=== PATIENT | female | born 1980 | race Caucasian/White ===

== ENCOUNTER 2025-04-17 17:40 | Inpatient (IN) ==
--- NOTE | 2025-04-17 18:04 | Emergency Department Note ---
Impression & Plan Abnormal computed tomography of lumbar spine, Lower back pain, Pain in right thigh, Breast cancer, Metastasis ED Provider Note NAME: REBECCA SERRANO AGE: 44 SEX: F : 1980 ARRIVES VIA: Walk-In INFORMANT: [Patient] ED PROVIDER(S): [Dc Marin MD] CHIEF COMPLAINT: Right back pain HISTORY OF PRESENT ILLNESS: The patient is a 44-year-old female with stage IV breast cancer. She has known lesions in the L3 vertebral body. She also has a known right sided kidney stone. The patient has had 1.5 weeks of right lower back pain moving to the right hip. She notices pain with urination. She also notices pain with movement in any direction, she has tried Tylenol for relief without success. The patient denies fall. No fever, no cough or congestion. No shortness of breath. She is not on blood thinning agents. PMHx/PSHx/Social Hx: See Below PHYSICAL EXAM: GENERAL: Patient is in no acute distress. HEENT: No acute trauma, normocephalic atraumatic, mucous membranes moist, no nasal congestion. NECK: No stridor, no adenopathy, no meningismus, trachea is midline. LUNGS: Clear to auscultation bilaterally, no wheeze, no rhonchi, breath sounds equal. HEART: Without murmurs gallops or rubs, regular rate and rhythm. ABDOMEN: Soft, nontender, no peritonitis. EXTREMITIES: No cyanosis, full range of motion of all the joints without pain or difficulty. NEUROLOGIC: Oriented x 3, no acute motor or sensory deficits, no focal weakness. I cannot elicit reflexes in either lower extremity. SKIN: No jaundice, no diaphoresis. Back: No real area of focal discomfort. The pain does worsen with any movement. DIFFERENTIAL DIAGNOSIS: Musculoskeletal pain, renal colic, UTI, pyelonephritis, hematoma, fracture, among others. EMERGENCY DEPARTMENT PROCEDURES: MEDICAL DECISION MAKING: There is no leukocytosis or concerning anemia. There is a normal platelet count. No bandemia. No renal failure or significant electrolyte abnormality. No concerning liver enzyme elevation. No evidence for pancreatitis. testing was negative. On exam, the patient had pain in the area of the right lumbar back. She was not toxic or febrile. Patient received IV saline for hydration. She was given IV Zofran, IV Toradol and IV Dilaudid. CT imaging of the lumbar spine and abdomen/pelvis was performed. Abdominal and pelvis CT did not show any urinary obstruction or ureteral stone. No acute surgical pathology. CT of the lumbar spine shows worsening of the L3 lesion with possible tumor extension into the right neural foramen. An MRI was suggested The patient still was having significant discomfort. She was ordered for IV Decadron as well as additional IV Dilaudid. I spoke with hematology oncology. They recommended hospitalization, MRI imaging, possibly radiation therapy. I did speak with the patient, I spoke with case management, the on-call hospitalist was consulted. Further workup/care is warranted inpatient. Prior/Outside records/notes reviewed: Hematology/oncology note from 03/26/2025 describing her current condition and plan moving forward. Imaging/x-ray results per my interpretation: Chronic Medical/Social conditions affecting care: Stage IV breast cancer Care/Management discussed with: Hematology oncology-Dr. Corona. Case management and the on-call hospitalist. Level of care consideration(s): After review of the information above and other included data: --I believe the patient requires escalation of care to admission DISPOSITION: Admission Past Med/Surg History Problem List Metastasis (Acute) Breast cancer (Acute) Pain in right thigh (Acute) Lower back pain (Acute) Abnormal computed tomography of lumbar spine (Acute) Malignant neoplasm of upper-outer quadrant of right breast in female, estrogen receptor positive (Chronic 07/21/19) Medical History Endometriosis Graves disease (~2004) Anxiety Migraine Hyperlipemia Acid reflux Hypothyroidism Depression Surgical History (Updated 08/09/22 @ 15:28 by Jyoti Stark RN) Status post cystoscopy with ureteral stent placement (~2014) Stent was removed day after placement History of lithotripsy (~2014) History of oral surgery (~2006) Extractions of all upper and lower teeth History of D&C x 3 History of total abdominal hysterectomy (~2018) has 1 ovary remaining History of lumpectomy of right breast 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 Father No problems noted. Brother No problems noted. Brother No problems noted. Sister , Half - Passed age 41 of MVA No problems noted. Daughter No problems noted. Son No problems noted. 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 Qualified Required: No Beliefs That Will Affect Care: None marital status: Current Living Situation: Family current occupational status: employed current occupation: [employer] Feels Safe at Home: Yes Childhood Exposure to Second-Hand Smoke: Yes Diet: regular caffeine: Yes during the past year weight has: remained stable Dental Care, Regularly: No Allergies Allergies Allergy/AdvReac Type Severity Reaction Status Date / Time ethinyl estradiol Allergy Severe Nausea/SOB Verified 09/15/22 09:06 [From Sprintec (28)] meperidine [From Demerol] Allergy Severe Nausea/Vomi Verified 09/15/22 09:06 ting norgestimate Allergy Severe Nausea/SOB Verified 09/15/22 09:06 [From Sprintec (28)] Home Meds Home Medications Medication Instructions Recorded Confirmed famotidine 20 mg tablet 20 mg PO BID 10/09/19 04/14/25 propranolol 10 mg tablet 10 mg PO BID 10/09/19 04/14/25 atorvastatin 20 mg tablet 20 mg PO DAILY 07/03/21 04/14/25 escitalopram oxalate 20 mg tablet 20 mg PO DAILY 07/03/21 04/14/25 levothyroxine 125 mcg tablet 125 mcg PO DAILY 07/03/21 04/14/25 letrozole 2.5 mg tablet 2.5 mg PO DAILY 08/09/22 04/14/25 pramipexole 0.125 mg tablet 0.125 mg PO DAILY 04/14/25 04/14/25 Results & Data (ED) Vital Signs Vital Signs - 24 hr 04/17/25 17:44 04/17/25 20:30 Temperature 36.3 C L Temperature Source Skin Pulse Rate 66 Pulse Rate [Finger] 60 Pulse Rhythm [Finger] Regular Pulse Strength [Finger] Normal Respiratory Rate 20 20 Respiratory Effort / Characteristics Non-Labored Spontaneous Non-Labored Spontaneous Respiratory Depth Normal Normal Respiratory Pattern Regular Regular Blood Pressure 125/75 Blood Pressure [Left Arm] 130/75 Blood Pressure Mean 91 Blood Pressure Mean [Left Arm] 93 Blood Pressure Position [Left Arm] Lying Pulse Oximetry 95 97 Oxygen Delivery Method Room Air Room Air Sepsis Recent Fever Within 48 Hours No Sepsis New/Unexplained Change in Mental Status N/A Sepsis Action Taken by Nursing No Action Required Home Medications Current Medication List: was personally reviewed by me Laboratory Data Attestation: I reviewed the patient's lab results. 04/17/25 18:19 04/17/25 18:19 Lab Results 04/17/25 Range/Units 18:19 WBC 10.06 (4.8-10.8) K/ul RBC 4.36 (4.20-5.40) M/uL Hgb 14.8 (12.0-16.0) g/dL Hct 41.4 (37.0-47.0) % MCV 95.0 (80.0-100.0) fL MCH 33.9 (25.0-34.0) pg MCHC 35.7 (32.0-36.0) g/dL RDW Std Deviation 44.9 (36.4-46.3) fL RDW Coeff of Liz 12.8 (11.5-14.5) % Plt Count 253 (130-400) K/uL MPV 10.0 (9.4-12.4) fL Immature Gran % (Auto) 0.2 % Neut % (Auto) 55.1 % Lymph % (Auto) 32.3 % Nelson % (Auto) 8.0 % Eos % (Auto) 3.6 % Baso % (Auto) 0.8 % Neut # (Auto) 5.55 (1.40-6.50) K/uL Lymph # (Auto) 3.25 (1.20-3.40) K/uL Nelson # (Auto) 0.80 H (0.11-0.59) K/uL Eos # (Auto) 0.36 (0.00-0.50) K/uL Baso # (Auto) 0.08 (0.00-0.20) K/uL Immature Gran # (Auto) 0.02 (0.01-0.20) K/uL Sodium 137 (136-145) mmol/L Potassium 4.3 (3.5-5.1) mmol/L Chloride 104 (98-107) mmol/L Carbon Dioxide 24 (21-32) mmol/L Anion Gap 9 (3-11) BUN 16 (6-23) mg/dl Creatinine 0.69 (0.6-1.2) mg/dl Est Cr Clr Drug Dosing 127.0 ml/min eGFR 108.33 BUN/Creatinine Ratio 23.2 H (10-20) Glucose 83 (70-99(Fasting)) mg/dl Calcium 9.6 (8.6-10.3) mg/dl Total Bilirubin 0.5 (0.2-1.0) mg/dl AST 21 (13-39) U/L ALT 29 (7-52) U/L Alkaline Phosphatase 71 (34-104) U/L Total Protein 7.6 (6.0-8.3) gm/dl Albumin 4.1 (3.4-5.0) gm/dl Globulin 3.5 (2.5-4.0) gm/dl Albumin/Globulin Ratio 1.2 (0.9-2) Lipase 38 (11-82) U/L HCG, Qual Negative (Negative) Administered Medications Discontinued Medications Dexamethasone Sodium Phosphate (DexamethasonePf 10 Mg/Ml Vial) 10 mg IV NOW ONE Stop: 04/17/25 20:15 Last Admin: 04/17/25 20:35 Dose: 10 mg Documented By: PRUDENCIO Hydromorphone HCl (Hydromorphone Inj 0.5 Mg/0.5 Ml Syr) 0.5 mg IV NOW STA Stop: 04/17/25 17:59 Last Admin: 04/17/25 18:28 Dose: 0.5 mg Documented By: LASHAUN Hydromorphone HCl (Hydromorphone Inj 1 Mg/Ml Syringe) 1 mg IV NOW STA Stop: 04/17/25 20:15 Last Admin: 04/17/25 20:34 Dose: 1 mg Documented By: PRUDENCIO Sodium Chloride (Nss) 500 mls @ 999 mls/hr IV .Q31M STA Stop: 04/17/25 18:28 Last Infusion: 04/17/25 19:04 Dose: Infused Documented By: Admin: 04/17/25 18:28 Dose: 999 mls/hr Documented By: LASHAUN Ioversol (Optiray 320 100ml) 93 ml IV ONCE ONE Stop: 04/17/25 19:09 Last Admin: 04/17/25 19:08 Dose: 93 ml Documented By: JEFRY Ketorolac Tromethamine (Ketorolac Tromethamine 15 Mg/Ml Vial) 10 mg IV NOW ONE Stop: 04/17/25 18:00 Last Admin: 04/17/25 18:28 Dose: 10 mg Documented By: LASHAUN Ondansetron HCl (Ondansetron Inj 2 Mg/Ml 2 Ml Vial) 4 mg IV NOW STA Stop: 04/17/25 17:59 Last Admin: 04/17/25 18:28 Dose: 4 mg Documented By: LASHAUN Imaging Data Radiologist's Impression: Abdomen/Pelvis CT 04/17/25 17:58 Clinical History: Right flank pain Technique: Axial computed tomography images were obtained of the abdomen and pelvis after the administration of intravenous contrast. Comparison is made to the prior CT dated 07/02/2021. Findings: The liver is overall of normal size, attenuation, and contour with no sign of cirrhosis or significant fatty infiltration. No liver mass lesion is seen. The portal vein is patent. The gallbladder appears unremarkable. No bile duct dilatation is noted. The spleen is of normal size. No focal splenic lesion is evident. The pancreas appears normal with no sign of acute or chronic pancreatitis and no mass lesion noted. The pancreatic duct is of normal caliber. The adrenal glands appear unremarkable. There is an 11 mm right renal calculus and there is a 2 mm left renal calculus. There is no hydronephrosis or perinephric stranding. No renal mass lesion is identified. The aorta is of normal caliber. No abdominal adenopathy is seen. The stomach appears normal. There is no sign of small bowel obstruction. The colon appears unremarkable. The appendix appears normal also. No free intraperitoneal fluid or air is identified. No distal ureteral or bladder calculi are seen. No bladder mass lesion is evident. The iliac arteries are of normal caliber. No pelvic adenopathy is noted. The uterus has been removed There is subsegmental atelectasis in the left lower lobe. No fracture is identified. No focal osseous lesion is seen Impression: Bilateral nonobstructing renal calculi Electronically signed by Celestine Ellington 04-17-2025 7:[address] 04/17/25 17:58 CT LUMBAR SPINE WITH CONTRAST: HISTORY: PAIN TECHNIQUE: Contrast enhanced CT examination of the lumbar spine is performed. Coronal and sagittal reformats were created. COMPARISON: PET CT April 01, 2025. FINDINGS: LUMBAR SPINE: There is no significant vertebral body height loss. There is no significant spondylolisthesis. Usual lumbar lordosis is preserved. There is an ill-defined lucency in the left sacral ala measuring approximately 3.8 cm in size. There is also a lucent lesion in the right lower aspect of L3 vertebral body measuring 2.0 cm in size. There appear to be cortical breakthroughs along the inferior endplate and posterior margin of the vertebral body. This could represent tumor extension into the spinal canal and the right neural foramen as well as into L3-4 disc space. This process may be contributing to moderate neural foraminal narrowing on the right side. Multilevel degenerative changes characterized by disc space loss, broad based disc bulge/herniations with endplate changes of the vertebral bodies with small marginal osteophytes as well as bilateral facet hypertrophy and thickening of the ligamentum flavum resulting in crowding of the subarticular recesses and narrowing of neural foramina worst at L4-S1. 9 mm nonobstructing calculus in the lower pole of the right kidney IMPRESSION: Redemonstrated ill-defined lucencies of the left sacral ala and L3 vertebral body as above, corresponding to metabolically active lesions identified in the recent PET/CT examination. There appear to be cortical breakthroughs along the inferior endplate and posterior margin of L3 vertebral body. This could represent tumor extension into the spinal canal and the right neural foramen as well as into L3-4 disc space may be contributing to moderate neural foraminal on the right side. These soft tissue processes are poorly evaluated in CT. If indicated, recommend further evaluation with lumbar spine MRI when clinically appropriate Electronically signed by Mark Castellano 04-17-2025 7:52 PM Discharge Plan Visit Data Chief Complaint: Back Injury/Pain Stated Complaint: SEVERE BACK PAIN, STAGE 4 CANCER, TUMOR ED Provider: Dc Marin Discharge Problem: Abnormal computed tomography of lumbar spine, Lower back pain, Pain in right thigh, Breast cancer, Metastasis Patient Disposition: Admitted As Inpatient Condition: Fair Forms Stand Alone Forms: BAM Labs Prescriptions Prescriptions: No Action famotidine 20 mg tablet 20 mg PO BID propranolol 10 mg tablet 10 mg PO BID letrozole 2.5 mg tablet 2.5 mg PO DAILY Rx Instructions: begin between days 2 and 5 of mentrual cycle pramipexole 0.125 mg tablet 0.125 mg PO DAILY atorvastatin 20 mg tablet 20 mg PO DAILY levothyroxine 125 mcg tablet 125 mcg PO DAILY escitalopram oxalate 20 mg tablet 20 mg PO DAILY Referrals Referrals: Jeremiah Day MD [Primary Care Provider] - Discharge Problem: Lower back pain Qualifiers: Chronicity: acute Back pain laterality: right Sciatica presence: with sciatica Sciatica laterality: sciatica of right side Qualified Code(s): M54.41 - Lumbago with sciatica, right side Breast cancer Qualifiers: Breast location: unspecified site of breast Estrogen receptor status: u nspecified Patient sex: female Laterality: unspecified laterality Qualified Code(s): C50.919 - Malignant neoplasm of unspecified site of unspecified female breast Metastasis Qualifiers: Area of secondary neoplastic involvement: bone Qualified Code(s): C79.51 - Secondary malignant neoplasm of bone
[2025-04-17] MEDS: KETOROLAC TROMETHAMINE 15 MG/ML VIAL IV ONE (18:28)
[2025-04-17] MEDS: ONDANSETRON INJ 2 MG/ML 2 ML VIAL IV STA (18:28)
[2025-04-17] MEDS: HYDROmorphone INJ 0.5 MG/0.5 ML SYR IV STA (18:28)
[2025-04-17] MEDS: SODIUM CHLORIDE 0.9% 500 ML IV STA (18:28)
[2025-04-17 18:32] LABS: Hematocrit (blood only) 41.4 % (37.0-47.0); Hemoglobin 14.8 g/dL (12.0-16.0); Immature Granulocytes # (auto) 0.02 K/uL (0.01-0.20); Immature Granulocytes % (auto) 0.2 %; Mean Corpuscular Hemoglobin 33.9 pg (25.0-34.0); Mean Corpuscular Volume 95.0 fL (80.0-100.0); Platelet Count 253 K/uL (130-400); RDW Standard Deviation 44.9 fL (36.4-46.3); Red Blood Count 4.36 M/uL (4.20-5.40); White Blood Count 10.06 K/ul (4.8-10.8)
[2025-04-17 18:50] LABS: Pregnancy Test, Serum Negative (Negative)
[2025-04-17 18:51] LABS: Alanine Aminotransferase 29.0 U/L (7-52); Albumin Globulin Ratio 1.2 (0.9-2); Albumin Level 4.1 gm/dl (3.4-5.0); Alkaline Phosphatase 71.0 U/L (34-104); Anion Gap 9.0 (3-11); Bilirubin,Total 0.5 mg/dl (0.2-1.0); Blood Urea Nitrogen 16.0 mg/dl (6-23); Calcium 9.6 mg/dl (8.6-10.3); Carbon Dioxide 24.0 mmol/L (21-32); Chloride 104.0 mmol/L (98-107); Creatinine Clr Calc Pharmacy 127.0 ml/min; Globulin 3.5 gm/dl (2.5-4.0); Glucose 83.0 mg/dl (70-99(Fasting)); Lipase 38.0 U/L (11-82); Potassium 4.3 mmol/L (3.5-5.1); Sodium 137.0 mmol/L (136-145); Total Protein 7.6 gm/dl (6.0-8.3)
[2025-04-17] MEDS: OPTIRAY 320 100ml IV ONE (19:08)
--- NOTE | 2025-04-17 19:28 | CT Scan Report ---
Clinical History: Right flank pain Technique: Axial computed tomography images were obtained of the abdomen and pelvis after the administration of intravenous contrast. Comparison is made to the prior CT dated 07/02/2021. Findings: The liver is overall of normal size, attenuation, and contour with no sign of cirrhosis or significant fatty infiltration. No liver mass lesion is seen. The portal vein is patent. The gallbladder appears unremarkable. No bile duct dilatation is noted. The spleen is of normal size. No focal splenic lesion is evident. The pancreas appears normal with no sign of acute or chronic pancreatitis and no mass lesion noted. The pancreatic duct is of normal caliber. The adrenal glands appear unremarkable. There is an 11 mm right renal calculus and there is a 2 mm left renal calculus. There is no hydronephrosis or perinephric stranding. No renal mass lesion is identified. The aorta is of normal caliber. No abdominal adenopathy is seen. The stomach appears normal. There is no sign of small bowel obstruction. The colon appears unremarkable. The appendix appears normal also. No free intraperitoneal fluid or air is identified. No distal ureteral or bladder calculi are seen. No bladder mass lesion is evident. The iliac arteries are of normal caliber. No pelvic adenopathy is noted. The uterus has been removed There is subsegmental atelectasis in the left lower lobe. No fracture is identified. No focal osseous lesion is seen Impression: Bilateral nonobstructing renal calculi Electronically signed by Celestine Ellington 04-17-2025 7:28 PM
--- NOTE | 2025-04-17 19:53 | CT Scan Report ---
CT LUMBAR SPINE WITH CONTRAST: HISTORY: PAIN TECHNIQUE: Contrast enhanced CT examination of the lumbar spine is performed. Coronal and sagittal reformats were created. COMPARISON: PET CT April 01, 2025. FINDINGS: LUMBAR SPINE: There is no significant vertebral body height loss. There is no significant spondylolisthesis. Usual lumbar lordosis is preserved. There is an ill-defined lucency in the left sacral ala measuring approximately 3.8 cm in size. There is also a lucent lesion in the right lower aspect of L3 vertebral body measuring 2.0 cm in size. There appear to be cortical breakthroughs along the inferior endplate and posterior margin of the vertebral body. This could represent tumor extension into the spinal canal and the right neural foramen as well as into L3-4 disc space. This process may be contributing to moderate neural foraminal narrowing on the right side. Multilevel degenerative changes characterized by disc space loss, broad based disc bulge/herniations with endplate changes of the vertebral bodies with small marginal osteophytes as well as bilateral facet hypertrophy and thickening of the ligamentum flavum resulting in crowding of the subarticular recesses and narrowing of neural foramina worst at L4-S1. 9 mm nonobstructing calculus in the lower pole of the right kidney IMPRESSION: Redemonstrated ill-defined lucencies of the left sacral ala and L3 vertebral body as above, corresponding to metabolically active lesions identified in the recent PET/CT examination. There appear to be cortical breakthroughs along the inferior endplate and posterior margin of L3 vertebral body. This could represent tumor extension into the spinal canal and the right neural foramen as well as into L3-4 disc space may be contributing to moderate neural foraminal on the right side. These soft tissue processes are poorly evaluated in CT. If indicated, recommend further evaluation with lumbar spine MRI when clinically appropriate Electronically signed by Mark Castellano 04-17-2025 7:52 PM
[2025-04-17] MEDS ORDERED: HYDROmorphone INJ 0.5 MG/0.5 ML SYR IV PRN (20:14)
[2025-04-17] MEDS: HYDROmorphone INJ 1 MG/ML SYRINGE IV STA (20:34)
[2025-04-17] MEDS: dexAMETHasone**PF** 10 MG/ML VIAL IV ONE (20:35)
[2025-04-17 20:49] LABS: Appearance Urine Clear (Clear); Bacteria Urine Automated 1+ (None Seen); Cast Urine Automated 0-2 /lpf (0-2); Epithelial Cell Urine Auto 0-2 /hpf (0-2); Glucose Urine UA Negative (Negative); WBC Urine Automated 0-5 /hpf (0-5)
--- NOTE | 2025-04-17 20:49 | History & Physical Report ---
Date of Service April 17, 2025 Assessment & Plan (1) Intractable back pain: (2) Breast cancer, stage 4: (3) Tobacco use: Plan Patient is a 44-year-old female with a past medical history including Graves' disease, anxiety/depression, HLD, breast cancer. She presented due to 1.5 weeks of severe progressive low back pain that radiates to her right hip and leg. Patient was found to have new L3 metastasis on PET scan 04/01. Workup in the ED revealed bilateral nonobstructing renal calculi as well as possible L3 tumor extension into the right neural foramen. She is being admitted for intractable pain and further workup regarding metastasis. #intractable painlikely 2/2 cancer related pain with recent L3 metastasis. Lumbar spine CT showed possible tumor extension into right neural foramen as well as into the L3-L4 disc space. Laboratories unremarkable. - nephrolithiasis/UTI unlikely given AP CT shows BL nonobstructing renal calculi, UA without infection Lumbar spine MRI ordered Heme/oncology consulted, may consider radiation therapy based off MRI results Pain control with Tylenol, Toradol, Dilaudid 0.5/1 mg (for pain uncontrolled by #1 and #2), Lidoderm patch, kpad prn - Decadron 10 mg IV in ED, continue with 6 mg daily Zofran as needed for nausea Trend CBC and BMP #stage IV breast cancer with metastasis to lumbar spinefollows with Dr. Donaldson. S/p lumpectomy 2018 and radiation in 2019. New found metastasis 04/01 on PET scan. Stat brain MRI 04/19 and further lymph node biopsy with Dr. Sanford 02/18 Lumbar spine MRI as above Heme/oncology consulted Continue letrozole #Tobacco use disorder1 pack/day cigarettes. Nicotine patch ordered Encourage smoking cessation #Hypothyroidismcontinue levothyroxine #HTNcontinue propranolol #RLScontinue Pramipexole #HLDcontinue statin #Anxiety/depressioncontinue escitalopram #GERDcontinue famotidine VTE ppx: Lovenox q 24h Dispo: med surg Admission and Anticipated Discharge Date Admission Date: 04/17/25 History of Present Illness Chief Complaint: back injury/pain Primary Care Provider: Jeremiah Day MD Patient is a 44-year-old female with a past medical history including Graves' disease, anxiety/depression, HLD, breast cancer. She presented due to 1.5 weeks of severe progressive low back pain that radiates to her right hip and leg. Patient was found to have new L3 metastasis on PET scan 04/01. Workup in the ED revealed bilateral nonobstructing renal calculi as well as possible L3 tumor extension into the right neural foramen. She is being admitted for intractable pain and further workup regarding metastasis. Patient seen at bedside with her family present. She stated she had radiation, lumpectomy, and lymph node biopsy in 2019 and her cancer has been stable since. She underwent CT imaging 03/26 which showed possible metastasis and she had a PET scan 04/01 which showed metastasis to the L3 region. Patient then had a lymph node biopsy 04/08 which she reports did not have a enough specimen to determine the hormonal make up of the cancer. She is to have a brain MRI Sunday and call lymph node biopsy with Dr. Sanford on Sunday. Since then she has developed progressive low back pain on the right side which radiates down her right hip and leg. This has been occurring for approximately 1.5 weeks and it has been unrelieved with Tylenol and ibuprofen at home. She does endorse some pain with urination/difficulty starting a stream however denies any urinary or bowel incontinence. She denies any trauma to the area. She does endorse some intermittent chest pain however baseline for her given her mass reportedly presses on her chest. She denies any shortness of breath, nausea, vomiting. She does smoke 1 pack per send day of cigarettes, would like nicotine patch, ordered. Denies daily alcohol use. She is due for her evening medications, ordered. Does not use any oxygen at baseline. Wishes to be DNR/DNI. Discussion with ER provider who spoke with on-call oncologist, Dr. Corona who recommended admission to the hospital for pain management, lumbar spine MRI, and will consider radiation based off MRI results. Allergies Allergy/AdvReac Type Severity Reaction Status Date / Time ethinyl estradiol Allergy Severe Nausea/SOB Verified 09/15/22 09:06 [From Sprintec (28)] meperidine [From Demerol] Allergy Severe Nausea/Vomi Verified 09/15/22 09:06 ting norgestimate Allergy Severe Nausea/SOB Verified 09/15/22 09:06 [From Sprintec (28)] Home Medications Medication Instructions Recorded Confirmed Type famotidine 20 mg tablet 20 mg PO BID 10/09/19 04/17/25 History propranolol 10 mg tablet 10 mg PO BID 10/09/19 04/17/25 History atorvastatin 20 mg tablet 20 mg PO DAILY 07/03/21 04/17/25 History escitalopram oxalate 20 mg tablet 20 mg PO DAILY 07/03/21 04/14/25 History levothyroxine 125 mcg tablet 125 mcg PO DAILY 07/03/21 04/17/25 History letrozole 2.5 mg tablet 2.5 mg PO DAILY 08/09/22 04/17/25 History pramipexole 0.125 mg tablet 0.125 mg PO DAILY 04/14/25 04/17/25 History Past Med/Surg History Problem List (Updated 04/18/25 @ 02:14 by Franko Avila) Tobacco use Breast cancer, stage 4 Intractable back pain Metastasis (Acute) Breast cancer (Acute) Pain in right thigh (Acute) Lower back pain (Acute) Abnormal computed tomography of lumbar spine (Acute) Malignant neoplasm of upper-outer quadrant of right breast in female, estrogen receptor positive (Chronic 07/21/19) Medical History Endometriosis Graves disease (~2004) Anxiety Migraine Hyperlipemia Acid reflux Hypothyroidism Depression Surgical History (Updated 08/09/22 @ 15:28 by Jyoti Stark RN) Status post cystoscopy with ureteral stent placement (~2014) Stent was removed day after placement History of lithotripsy (~2014) History of oral surgery (~2006) Extractions of all upper and lower teeth History of D&C x 3 History of total abdominal hysterectomy (~2018) has 1 ovary remaining History of lumpectomy of right breast 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 Father No problems noted. Brother No problems noted. Brother No problems noted. Sister , Half - Passed age 41 of MVA No problems noted. Daughter No problems noted. Son No problems noted. 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 Non-toxic appearing. HEENT- EOMI, mucous membranes moist. Hearing grossly intact. Heart-normal S1 and S2. No murmurs, rubs or gallops. Lungs-clear bilaterally, no respiratory distress, no accessory muscle use. Abdomen-normal bowel sounds and soft. No ascites noted. Non-tender. Extremities- no clubbing, cyanosis, or edema. Rheumatologic-normal range of motion. Psychiatric-normal affect. Musculoskeletal: no cyanosis or clubbing, extremities motor strength 5/5 Neurologic: Motor/Sensory: no sensory deficit Results & Data Results & Data Vital Signs (Past 12 Hours) Vital Signs Temp Pulse Pulse Resp BP BP Pulse Ox 04/17/25 20:30 60 20 130/75 97 04/17/25 17:44 36.3 C L 66 20 125/75 95 O2 Del Method 04/17/25 20:30 Room Air 04/17/25 17:44 Room Air Laboratory Results Reviewed CBC, CMP, hCG, lipase, UA Diagnostic Findings Reviewed abdomen pelvis CT, lumbar spine CT Medications Administered ED500 mL NSS bolus, 1.5 mg Dilaudid IV, Zofran 4 Mg IV, Toradol 10 Mg IV, Decadron 10 mg IV ECG Additional Comments: ordered Code Status & VTE Plan Code Status DNR/DNI VTE Prophylaxis Plan VTE Prophylaxis will be ordered: Yes Supervising Physician Co-Signing Physician Notes Attending addendum: I have physically seen this patient, have supervised the medical residents activities, and agree with the H&P unless as otherwise noted. Assessment and Plan: The patient is a 44-year-old female with a past medical history including Graves' disease, anxiety/depression, hyperlipidemia, breast cancer. She presented to the emergency department with 1-1/2 weeks of severe progressive low back pain radiating to her right hip and leg. PET/CT on 04/01 showed new L3 metastases. CT scan lumbar spine this evening showed possible extension into the L3-4 disc space. Intractable low back pain- Patient was found on PET/CT 04/[address] this evening suggest possible extension into the L3-4 disc space MRI lumbar spine ordered CT also notes bilateral nonobstructing renal calculi,, not likely the cause of symptoms Acetaminophen as needed mild pain or fever Toradol 15 mg IV every 6 hours as needed for moderate pain Toradol IV as noted for severe pain Lidoderm patch K-pad use as needed Decadron 6 mg IV given in the ED, will continue on 6 mg IV daily Zofran 4 mg IV every 6 hours as needed Follow serial CBC with differential and basic metabolic panel Stage IV breast cancer with new metastases to lumbar spine- Consulting Dr. Ruby Tobacco use disorder- 1 pack/day cigarettes Nicotine patch Smoking cessation counseling Remaining orders and notations as noted PG Care Time/CCT Total # of Minutes Spent Total Time Spent with Patient: Total time spent is greater than 50% in coordination of care (as documented) at patient's floor/unit and/or counseling patient: Coding Level of Care Code 70204 INT INP/OBS CARE 3/75MIN Diagnoses Intractable back pain M54.9 Breast cancer, stage 4 C50.919 Tobacco use Z72.0
--- NOTE | 2025-04-17 23:15 | Magnetic Resonance Report ---
Exam(s): MRI L SPINE Without Contrast EXAM: MR Lumbar Spine Without Intravenous Contrast CLINICAL HISTORY: Reason for exam: possible L3 tumor extension. OTHER: Other Notes: pt states came to ED with lower back pain hx of breast cancer, diagnosed in July [address] possible metastatic lesions seen on CT lumbar today in L3 region and left sacral ala possible tumor extension into L3 metabolically active lesions seen on prior PET scan corresponding with these lesions follow up, radiologist who read CT recommended MRI lumbar TECHNIQUE: Magnetic resonance images of the lumbar spine without intravenous contrast in multiple planes. COMPARISON: No relevant prior studies available. FINDINGS: Vertebrae: There are 5 lumbar type vertebral bodies with a mild generalized curved to the right and normal lumbar lordosis. There is normal vertebral body height and alignment. There are bone marrow lesions in the T12 L3, L4, S1 and S2 segments. No acute fracture. Spinal cord: Unremarkable. Normal signal. Soft tissues: Advanced atrophy of the iliopsoas, paraspinous intraspinous musculature. The aorta and IVC flow voids are intact. Tiny left renal cyst. IMPRESSION: There are bone marrow lesions in the T12, L3, L4, S1 and S2 vertebral bodies concerning for metastatic disease. No evidence of pathologic fracture or epidural tumor in this noncontrast study. Electronically signed by: Karie Shea MD 04/17/25 23:14 PM
[2025-04-18] MEDS ORDERED: ONDANSETRON INJ 2 MG/ML 2 ML VIAL IV PRN (02:24)
[2025-04-18] MEDS ORDERED: ACETAMINOPHEN 325 MG TAB PO PRN (02:24)
[2025-04-18] MEDS ORDERED: NALOXONE HCL 0.4 MG/1 ML VIAL/CARP IV PRN (02:24)
[2025-04-18] MEDS ORDERED: MELATONIN 3 MG TAB PO PRN (02:24)
[2025-04-18] MEDS: HYDROmorphone INJ 0.5 MG/0.5 ML SYR IV PRN (02:39)
[2025-04-18] MEDS: REMOVE LIDODERM PATCH SCH (03:43)
[2025-04-18] MEDS: ENOXAPARIN INJ 40 MG/0.4 ML SYR SQ SCH (03:49)
[2025-04-18] MEDS: PRAMIPEXOLE DIHYDROCHLO 0.25 MG TAB PO SCH (03:50)
[2025-04-18] MEDS: FAMOTIDINE 20 MG TAB PO SCH (03:50)
[2025-04-18] MEDS: LEVOTHYROXINE SODIUM 125 MCG TABLET PO SCH (03:50)
[2025-04-18] MEDS: PROPRANOLOL HCL 10 MG TAB PO SCH (03:50)
[2025-04-18 06:48] LABS: Hematocrit (blood only) 40.8 % (37.0-47.0); Hemoglobin 14.3 g/dL (12.0-16.0); Immature Granulocytes # (auto) 0.04 K/uL (0.01-0.20); Immature Granulocytes % (auto) 0.4 %; Mean Corpuscular Hemoglobin 33.3 pg (25.0-34.0); Mean Corpuscular Volume 94.9 fL (80.0-100.0); Platelet Count 254 K/uL (130-400); RDW Standard Deviation 43.9 fL (36.4-46.3); Red Blood Count 4.30 M/uL (4.20-5.40); White Blood Count 9.33 K/ul (4.8-10.8)
[2025-04-18 07:36] LABS: Alanine Aminotransferase 26.0 U/L (7-52); Albumin Globulin Ratio 1.4 (0.9-2); Albumin Level 4.4 gm/dl (3.4-5.0); Alkaline Phosphatase 71.0 U/L (34-104); Anion Gap 10.0 (3-11); Bilirubin,Total 0.4 mg/dl (0.2-1.0); Blood Urea Nitrogen 16.0 mg/dl (6-23); Calcium 9.4 mg/dl (8.6-10.3); Carbon Dioxide 23.0 mmol/L (21-32); Chloride 103.0 mmol/L (98-107); Creatinine Clr Calc Pharmacy 145.5 ml/min; Globulin 3.2 gm/dl (2.5-4.0); Glucose 163.0 mg/dl (70-99(Fasting)); Magnesium 2.0 mg/dl (1.7-2.4); Potassium 4.7 mmol/L (3.5-5.1); Sodium 136.0 mmol/L (136-145); Total Protein 7.6 gm/dl (6.0-8.3)
[2025-04-18] MEDS: KETOROLAC TROMETHAMINE 15 MG/ML VIAL IV PRN (07:51)
[2025-04-18] MEDS: LIDOCAINE 5% 1 PATCH TD SCH (07:51)
[2025-04-18] MEDS: dexAMETHasone 6 MG in SYRINGE 0 ML IV SCH (07:52)
[2025-04-18] MEDS: ATORVASTATIN 20 MG TAB PO SCH (07:52)
[2025-04-18] MEDS: ESCITALOPRAM OXALATE 20 MG TAB PO SCH (07:52)
[2025-04-18] MEDS: NICOTINE 21 MG/24 HR TDSY TD SCH (07:53)
[2025-04-18] MEDS: REMOVE NICODERM PATCH SCH (07:53)
[2025-04-18] MEDS: HYDROmorphone INJ 1 MG/ML SYRINGE IV PRN (08:30)
[2025-04-18] MEDS: GADOBUTROL 65ML VIAL IV ONE (09:11)
--- NOTE | 2025-04-18 09:57 | Magnetic Resonance Report ---
Clinical History: Breast cancer. Rule out metastatic disease Technique: Multiple T1 and T2-weighted magnetic resonance images were obtained of the brain both before and after the administration of 11 cc of Gadavist intravenous gadolinium contrast Findings: There is no sign of acute or old infarction with normal-appearing diffusion weighted images. No definite focus of demyelination is seen. No mass lesion or other area of abnormal enhancement is identified. There is no intracranial hemorrhage or other fluid collection. No midline shift or other form of herniation is seen. There is no hydrocephalus. There is cavum septum pellucidum, a normal variant. The pituitary gland appears normal. Normal flow-voids are seen within the arteries of the [id number]. The orbits and paranasal sinuses appear normal. The mastoid air cells appear clear Impression: Unremarkable MRI of the brain Electronically signed by Celestine Ellington 04-18-2025 09:57 AM
[2025-04-18] MEDS: LETROZOLE 2.5 MG TAB PO SCH (10:25)
--- NOTE | 2025-04-18 11:09 | Hospitalist Progress Note ---
"Date of Service April 18, 2025 Assessment & Plan (1) Intractable back pain: (2) Breast cancer, stage 4: (3) Tobacco use: Plan Patient is a 44-year-old female with a past medical history including Graves' disease, anxiety/depression, HLD, breast cancer. She presented due to 1.5 weeks of severe progressive low back pain that radiates to her right hip and leg. Patient was found to have new L3 metastasis on PET scan 04/01. Workup in the ED revealed bilateral nonobstructing renal calculi as well as possible L3 tumor extension into the right neural foramen. She is being admitted for intractable pain and further workup regarding metastasis on 04/17/2025. #Stage IV breast cancer w/ mets to lumbar spine | intractable cancer related pain Follows w/ Dr. Ruby outpatient. s/p lumpectomy in 2018 & radiation in 2019. Now on Letrozole which has been continued. Laboratories unremarkable. Lumbar MRI : Bone marrow lesions at T12, L3, L4, S1, S2 concerning for metastatic disease. Brain MRI negative for acute pathology. Oncology consulted, appreciate recommendations Pt is scheduled for a bx on 04/[address] Sanford, will touch base with gen surg to see if she can still have this done on Sunday. Continue 6mg IV Dexamethasone daily Pain control: Tylenol, Toradol, Dilaudid prn. Zofran prn for N/V. #Tobacco use disorder 1 pack/day cigarettes. Nicotine patch ordered Encourage smoking cessation #Hypothyroidismcontinue levothyroxine #HTNcontinue propranolol #RLScontinue Pramipexole #HLDcontinue statin #Anxiety/depressioncontinue escitalopram #GERDcontinue famotidine VTE ppx: Lovenox q 24h Code: DNR/DNI Admission and Anticipated Discharge Date Admission Date: April 17, 2025 Supervising Physician Co-Signing Physician Notes The patient was not seen by me. The chart was reviewed. Case discussed with SUDEEP Mondragon. Agree with assessment and plan Subjective Lucy was seen & examined this morning. She reports her pain is decently controlled at rest but when she moves her pain is significant. Reports pain w/ movement despite the dose of Dilaudid. Physical Exam Physical Exam: General: NAD, VS: BP 105/66; P62; R16; T36.7C Resp: normal respiratory effort Extremities: no edema Neuro: A&O x3 Skin: intact, no lesions noted Results & Data Results & Data Vital Signs (Past 12 Hours) Vital Signs Temp Pulse Resp BP Pulse Ox O2 Del Method 04/18/25 07:28 36.7 C 62 16 105/66 93 Room Air 04/18/25 03:56 Room Air 04/18/25 02:24 36.7 C 63 18 136/80 92 Room Air 04/18/25 01:28 61 18 113/63 93 Room Air PG Care Time/CCT Total # of Minutes Spent Total Time Spent with Patient: Total time spent is greater than 50% in coordination of care (as documented) at patient's floor/unit and/or counseling patient: Coding Level of Care Code 77603 SUB INP/OBS CARE 2/35MIN Diagnoses Intractable back pain M54.9 Breast cancer, stage 4 C50.919 Tobacco use Z72.0"
[2025-04-18] MEDS: MoRPHine SULFATE 4 MG/ML 1 ML CARP\\VIAL IV STA (19:14)
[2025-04-18] MEDS ORDERED: MoRPHine SULFATE 2 MG/ML CARP IV PRN (20:30)
[2025-04-18] MEDS: MoRPHine SULFATE 4 MG/ML 1 ML CARP\\VIAL IV PRN (21:38)
[2025-04-19] MEDS: HYDROmorphone INJ 0.5 MG/0.5 ML SYR IV STA (05:02)
--- NOTE | 2025-04-19 11:19 | Hospitalist Progress Note ---
"Date of Service April 19, 2025 Assessment & Plan (1) Intractable back pain: (2) Breast cancer, stage 4: (3) Tobacco use: Plan Patient is a 44-year-old female with a past medical history including Graves' disease, anxiety/depression, HLD, breast cancer. She presented due to 1.5 weeks of severe progressive low back pain that radiates to her right hip and leg. Patient was found to have new L3 metastasis on PET scan 04/01. Workup in the ED revealed bilateral nonobstructing renal calculi as well as possible L3 tumor extension into the right neural foramen. She is being admitted for intractable pain and further workup regarding metastasis on 04/17/2025. #Stage IV breast cancer w/ mets to lumbar spine | intractable cancer related pain Follows w/ Dr. Ruby outpatient. s/p lumpectomy in 2018 & radiation in 2019. Now on Letrozole which has been continued. Laboratories unremarkable. Brain MRI negative for acute pathology. Lumbar MRI : Bone marrow lesions at T12, L3, L4, S1, S2 concerning for metastatic disease. Oncology consulted, appreciate recommendations Pt is scheduled for a bx on 04/[address] Sanford, Discussed w/ Dr. Suzanne Bower on 04/19, rec reaching out on 04/20 & patient will be added to someone's schedule. NPO after midnight & Lovenox on hold Continue 6mg IV Dexamethasone daily Pain control: Tylenol, Toradol, Dilaudid prn. Added Scheduled 12mcg Fentanyl patch 04/19, adjust as necessary. Zofran prn for N/V. #Tobacco use disorder 1 pack/day cigarettes. Nicotine patch ordered Encourage smoking cessation #Hypothyroidismcontinue levothyroxine #HTNcontinue propranolol #RLScontinue Pramipexole #HLDcontinue statin #Anxiety/depressioncontinue escitalopram #GERDcontinue famotidine VTE ppx: Lovenox q 24h on hold in the event of upcoming surgical biopsy. Code: DNR/DNI Admission and Anticipated Discharge Date Admission Date: April 17, 2025 Supervising Physician Co-Signing Physician Notes The patient was not seen by me. The chart was reviewed. Case discussed with SUDEEP Mondragon. Agree with assessment and plan Subjective Lucy was seen & examined this morning. She is still experiencing severe 9/10-10/10 pain in her lower back region. Reports it is worse with movement. She felt the Dilaudid was more effective than the Morphine. She is agreeable to a fentanyl patch. Physical Exam Physical Exam: General: NAD, VS: BP 120/72; P59; R16; T36.6C Resp: normal respiratory effort Extremities: Moves all extremities, no edema Neuro: A&O x3 Skin: intact, no lesions noted Results & Data Results & Data Vital Signs (Past 12 Hours) Vital Signs Temp Pulse Resp BP Pulse Ox O2 Del Method 04/19/25 07:19 36.6 C 59 L 16 120/72 94 Room Air 04/19/25 04:31 36.8 C 62 16 127/73 95 Room Air PG Care Time/CCT Total # of Minutes Spent Total Time Spent with Patient: Total time spent is greater than 50% in coordination of care (as documented) at patient's floor/unit and/or counseling patient: Coding Level of Care Code 65771 SUB INP/OBS CARE 2/35MIN Diagnoses Intractable back pain M54.9 Breast cancer, stage 4 C50.919 Tobacco use Z72.0"
[2025-04-19] MEDS: HYDROmorphone INJ 0.5 MG/0.5 ML SYR IV PRN (12:14)
[2025-04-19] MEDS: HYDROmorphone INJ 1 MG/ML SYRINGE IV PRN (15:35)
--- NOTE | 2025-04-19 16:50 | Surgery Consultation ---
Date of Consultation April 19, 2025 Assessment & Plan (1) Metastasis: (2) Lower back pain: Plan S/p IR aspiration of a visibly abnormal left supraclavicular lymph node by US on 04/08/25 that proved to be metastatic disease most c/w with breast cancer but contained too few cells to provide necessary markers for treatment. Will discuss this case with medical oncology in the am as I was under the impression that no tissue diagnosis had been made. This has been proven to be an ER/MD (-) likely breast cancer and I would like to confirm with medical oncology that they do in fact need more tissue for other studies to help guide treatment prior to performing a surgical procedure. 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 engineer localization of this lymph node by IR to prep for a targeted lymphadenectomy of this proven metastatic lymph node Hold Lovenox in the am May consider consult IR in the am for [employer] water treatment plant engineer insertion of this previously biopsied lymph node based on conversation with medical oncology NPO after MN History of Present Illness Reason for Consultation: b/l axillary adenopathy, request for biopsy Attending Physician: Can Lozano MD History of Present Illness Lucy is a 44F who presented to the ED with lower back to right hip pain in t he face of recently diagnosed metastatic disease. A surgical consultation has been requested for consideration for excisional biopsy for reportedly the lack of having been able to obtain a tissue diagnosis to date. 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 Stage IA with clear margins of >0.3cm from all portions and 2(-) SN removed. An Oncotype DX was performed revealing a recurrence score of 23 and CTX was determined to be of minimal benefit. She was treated then adjuvantly with RTX and endocrine therapy. LCIS was also identified in her specimen and she was recommended to undergo annual breast MRI for additional surveillance to her annual mammograms. Unfortunately she states she lost her insurance which compromised her follow up and imaging studies so she was not able to get MRIs but did continue to get annual mammograms for which she was self pay. She did continue to follow up with medical oncology intermittently and this was further compromised by the changed locations of her physician. Once she was returned to insurance coverage, she became connected with medical oncology at [facility] but had not yet reconnected with me at this new location for continued surveillance follow up. In the meantime, she developed chest pain for which she presented to the ED and had a (-) cardiac work up, this seemed to resolve. She then had follow up with her medical oncologist who felt an enlarged left axillary lymph node. A CTA chest and PET CT were performed noting evidence for metastatic disease involving osseous structures including L4 vertebral body and her sacrum, an anterior mediastinal mass, b/l axillary adenopathy including left supraclavicular adenopathy. On my review of her chart, an US of an abnormal appearing left supraclavicular lymph node was done at the time of a planned USG CNB. Pathology revealed metastatic disease carcinoma most consistent with breast primary but too few tumor cells for true quantitation of prognostic markers or additional testing. Allergies Allergy/AdvReac Type Severity Reaction Status Date / Time ethinyl estradiol Allergy Severe Nausea/SOB Verified 09/15/22 09:06 [From Sprintec (28)] meperidine [From Demerol] Allergy Severe Nausea/Vomi Verified 09/15/22 09:06 ting norgestimate Allergy Severe Nausea/SOB Verified 09/15/22 09:06 [From Sprintec (28)] Home Medications Medication Instructions Recorded Confirmed Type famotidine 20 mg tablet 20 mg PO BID 10/09/19 04/17/25 History propranolol 10 mg tablet 10 mg PO BID 10/09/19 04/17/25 History atorvastatin 20 mg tablet 20 mg PO DAILY 07/03/21 04/17/25 History escitalopram oxalate 20 mg tablet 20 mg PO DAILY 07/03/21 04/14/25 History levothyroxine 125 mcg tablet 125 mcg PO DAILY 07/03/21 04/17/25 History letrozole 2.5 mg tablet 2.5 mg PO DAILY 08/09/22 04/17/25 History pramipexole 0.125 mg tablet 0.125 mg PO DAILY 04/14/25 04/17/25 History Patient History Medical History Endometriosis Graves disease (~2004) Anxiety Migraine Hyperlipemia Acid reflux Hypothyroidism Depression Surgical History (Updated 08/09/22 @ 15:28 by Jyoti Stark RN) Status post cystoscopy with ureteral stent placement (~2014) Stent was removed day after placement History of lithotripsy (~2014) History of oral surgery (~2006) Extractions of all upper and lower teeth History of D&C x 3 History of total abdominal hysterectomy (~2018) has 1 ovary remaining History of lumpectomy of right breast 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 Father No problems noted. Brother No problems noted. Brother No problems noted. Sister , Half - Passed age 41 of MVA No problems noted. Daughter No problems noted. Son No problems noted. 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 Feels Safe at Home: Yes Childhood Exposure to Second-Hand Smoke: Yes Diet: regular caffeine: Yes during the past year weight has: remained stable Dental Care, Regularly: No Assistive Devices: None Physical Exam Constitutional: not ill appearing, not obese, not in distress and not diaphoretic Respiratory: normal respiratory effort; no respiratory distress, no labored breathing and does not use accessory muscles Cardiovascular: Rate/Rhythm: regular rate; not tachycardic Gastrointestinal (Abdomen): Inspection/Auscultation: abdomen normal to inspection; abdomen not distended Lymphatic: Prominent firm axillary fat b/l with large area of thickening b/l No palpable supraclavicular adenopathy Results & Data Vital Signs (Past 12 Hours) Vital Signs Temp Pulse Resp BP Pulse Ox O2 Del Method O2 Flow Rate 04/19/25 16:07 Nasal Cannula 2 04/19/25 15:43 36.8 C 80 18 130/72 92 Room Air 04/19/25 07:19 36.6 C 59 L 16 120/72 94 Room Air Laboratory Results No leukocytosis or anemia Diagnostic Findings Adenopathy on PET CT Mediastinal mass on chest CT PG Care Time/CCT Total # of Minutes Spent Total Time Spent with Patient: Total time spent is greater than 50% in coordination of care (as documented) at patient's floor/unit and/or counseling patient: Prolonged Care Time I have reviewed this patient's imaging including outpatient studies, reports and outpatient notes dating back to her original diagnosis to help put together the full clinical picture Coding Level of Care Code 79203 IN/OBS CONSULT LVL 4,60M Diagnoses Metastasis C79.51 Area of secondary neoplastic involvement: bone Lower back pain M54.41 Back pain laterality: right Chronicity: acute Sciatica laterality: sciatica of right side Sciatica presence: with sciatica (1) Metastasis Area of secondary neoplastic involvement: bone Qualified Code(s): C79.51 - Secondary malignant neoplasm of bone (2) Lower back pain Back pain laterality: right Chronicity: acute Sciatica laterality: sciatica of right side Sciatica presence: with sciatica Qualified Code(s): M54.41 - Lumbago with sciatica, right side
--- NOTE | 2025-04-20 08:43 | Oncology Consultation ---
Date of Consultation April 20, 2025 Assessment & Plan (1) Pain from bone metastases: (2) Breast cancer, stage 4: Plan -Since patient previously had ER/AR positive breast cancer and recent lymph node biopsy sample was suggestive of ER/AR negative disease but was insufficient for ancillary testing to confirm this, she needs excisional lymph node biopsy. Ideally, would recommend obtaining this inpatient as this would impact treatment decisions. -Recommend evaluation by palliative care for pain management. As discussed with radiation oncology If pain does not improve with medical management, would consider palliative RT. History of Present Illness Reason for Consultation: intractable cancer-related pain, l3 mets Attending Physician: Miguel Ángel Rodriguez MD History of Present Illness 44-year-old female with history of ER/AR positive breast cancer recently found to have recurrent disease admitted with back pain thought to be due to lumbar spine metastasis. Of note, she was scheduled for evaluation by surgery for excisional lymph node biopsy tomorrow after FNA of left supraclavicular lymph node on 04/08/2025 revealed likely ER/AR negative metastatic breast cancer but was insufficient for true quantification of prognostic markers Allergies Allergy/AdvReac Type Severity Reaction Status Date / Time ethinyl estradiol Allergy Severe Nausea/SOB Verified 09/15/22 09:06 [From Sprintec (28)] meperidine [From Demerol] Allergy Severe Nausea/Vomi Verified 09/15/22 09:06 ting norgestimate Allergy Severe Nausea/SOB Verified 09/15/22 09:06 [From Sprintec (28)] Home Medications Medication Instructions Recorded Confirmed Type famotidine 20 mg tablet 20 mg PO BID 10/09/19 04/17/25 History propranolol 10 mg tablet 10 mg PO BID 10/09/19 04/17/25 History atorvastatin 20 mg tablet 20 mg PO DAILY 07/03/21 04/17/25 History escitalopram oxalate 20 mg tablet 20 mg PO DAILY 07/03/21 04/14/25 History levothyroxine 125 mcg tablet 125 mcg PO DAILY 07/03/21 04/17/25 History letrozole 2.5 mg tablet 2.5 mg PO DAILY 08/09/22 04/17/25 History pramipexole 0.125 mg tablet 0.125 mg PO DAILY 04/14/25 04/17/25 History Patient History Medical History Endometriosis Graves disease (~2004) Anxiety Migraine Hyperlipemia Acid reflux Hypothyroidism Depression Surgical History (Updated 08/09/22 @ 15:28 by Jyoti Stark, SUSAN) Status post cystoscopy with ureteral stent placement (~2014) Stent was removed day after placement History of lithotripsy (~2014) History of oral surgery (~2006) Extractions of all upper and lower teeth History of D&C x 3 History of total abdominal hysterectomy (~2018) has 1 ovary remaining History of lumpectomy of right breast Right breast invasive ductal carcinoma grade 2 ER/AR positive and HER2 negative, stage 1A History of laparoscopy x 6 Family History (Updated 10/09/19 @ 10:41 by Brandi Neville RN) Mother , Passed age 59 of pneumonia No problems noted. Father No problems noted. Brother No problems noted. Brother No problems noted. Sister , Half - Passed age 41 of MVA No problems noted. Daughter No problems noted. Son No problems noted. 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
[2025-04-20] MEDS: SODIUM CHLORIDE 0.9% 500 ML IV SCH (09:15)
--- NOTE | 2025-04-20 10:51 | Radiation OncologyConsultation ---
Date of Consultation April 20, 2025 Assessment & Plan (1) Pain from bone metastases: Plan ATTENDING ADDENDUM Assessment: Ms. Araiza is a 44-year-old female who was recently diagnosed with metastatic breast cancer. The patient was previously diagnosed in 2019 and underwent treatment which included radiation therapy. The patient more recently was seen by Dr. Ruby who is completing the staging workup in the outpatient setting. The patient did develop significant lower back pain and has been admitted to the hospital for pain control. They are currently working on obtaining a tissue diagnosis to help guide overall management. We have been asked to evaluate the patient regarding palliative radiation therapy to the lumbar spine for pain control. Plan: 1. No initial role for radiation therapy. The case was discussed with Dr. Ruby and the plan is to obtain a tissue diagnosis to confirm the specific tumor markers for the metastatic disease to potentially guide systemic therapy. Palliative radiation therapy is an option for treatment for the patient if the patient's symptoms continue to get worse or it is felt there will be a delayed response with systemic therapy. 2. Tissue diagnosis to confirm specific tumor markers and histology. 3. Medical oncology consultation pending. Input appreciated. 4. Continue pain management as per primary medical team. 5. We will continue to follow the patient's progress through the chart. Please contact us if radiation therapy should be reconsidered for this patient. History of Present Illness Reason for Consultation: Bone metastasis with back pain Requesting Physician: Miguel Ángel Rodriguez MD Attending Physician: Miguel Ángel Rodriguez MD History of Present Illness 12/31/2018. Breast, left, core biopsy: Complex fibroadenoma. Negative for atypia or malignancy. 07/15/2019. Bilateral diagnostic mammogram and bilateral breast ultrasound. Impression: Calcifications in the upper outer right breast have increased now appear more suspicious for malignancy. Stereotactic core needle biopsy is advised. 07/21/2019. BREAST, RIGHT, UPPER OUTER QUADRANT, MIAN-GUIDED CORE BIOPSY: INVASIVE DUCTAL CARCINOMA, GRADE 2 OF 3. ESTROGEN RECEPTOR: POSITIVE (100%, STRONG INTENSITY, H SCORE 300). PROGESTERONE RECEPTOR: POSITIVE (100%, STRONG INTENSITY, H SCORE 300). HER2/ERICK OVEREXPRESSION: NEGATIVE (0% STAINING). Ki-67 PROLIFERATION INDEX: 55% (HIGH). SIZE OF INVASIVE CARCINOMA: 6.0 MM IN GREATEST DIMENSION. HIGH-GRADE DUCTAL CARCINOMA IN SITU WITH COMEDONECROSIS AND MICROCALCIFICATIONS. 07/25/2019. Bilateral breast ultrasound. Impression: In the right axilla 2 lymph nodes with no suspicious morphology are documented. Fibrocystic changes upper left breast account for the palpable finding, including a dominant 9 mm cyst at 1:00. 3 mm hypoechoic structure at 2:00 left breast is probably a cyst but cannot be definitively characterize due to its small size. Reevaluation by a limited left breast ultrasound is recommended in 6 months. 08/05/2019. SKIN, RIGHT BREAST AREOLA, PUNCH BIOPSY: 1. SUPERFICIAL PERIVASCULAR DERMATITIS. SEE COMMENT. 2. NEGATIVE FOR MALIGNANCY. 08/14/2019. MRI breast. IMPRESSION: ACR BI-RADS CATEGORY 6: KNOWN BIOPSY PROVEN MALIGNANCY: 1. Focal, somewhat ill-defined, enhancement at the recent biopsy site in the right upper outer quadrant at approximately 10-11 o'clock middle depth, estimated to measure approximately 2.1 x 1.1 x 2.0 cm. Findings likely represent residual malignancy. Recommend surgical excision. No evidence of multifocal or multicentric disease. 2. No MRI evidence of malignancy in the left breast. Biopsy-proven benign 12 mm fibroadenoma in the left upper inner quadrant. 08/22/2019. Right breast lumpectomy: 1. INVASIVE DUCTAL CARCINOMA. 2. GRADE 2/3 (ALYSA HISTOLOGIC SCORE): TUBULE SCORE 3, NUCLEAR SCORE 2, MITOTIC SCORE 2 (7/9). 3. TUMOR MEASURES APPROXIMATELY 2 CM IN GREATEST DIMENSION. SEE COMMENT. 4. DUCTAL CARCINOMA IN SITU, SOLID WITH COMEDONECROSIS. NUCLEAR GRADE 3/3. 5. NO LYMPHOVASCULAR INVASION IDENTIFIED. 6. EXAMINED MARGINS OF RESECTION NEGATIVE FOR INVASIVE CARCINOMA AND DCIS. INVASIVE CARCINOMA EXTENDS TO WITHIN 0.9 CM OF SUPERIOR AND INFERIOR MARGINS. DCIS EXTENDS TO WITHIN 0.3 CM OF SUPERIOR MARGIN. 7. BIOPSY SITE CHANGES. 8. LOBULAR CARCINOMA IN SITU, FOCAL. 9. FIBROCYSTIC CHANGE. 10. ADENOSIS. LYMPH NODE, RIGHT AXILLARY SENTINEL, BIOPSY: TWO BENIGN LYMPH NODES IDENTIFIED. NEGATIVE FOR METASTATIC CARCINOMA ON ROUTINE SECTIONS AND IMMUNOHISTOCHEMICAL STAIN FOR CYTOKERATIN (0/2). 09/19/2019. Oncotype DX breast recurrence score report. Recurrence score 23. Group average absolute chemotherapy benefit less than 1%. 09/22/2019. Medical oncology follow-up with Dr. Stinson. Dr. Stinson has recommended adjuvant tamoxifen and advised against chemotherapy. 10/01/2019. CT of chest. IMPRESSION: 1. No adenopathy or evidence of pulmonary metastatic disease. 2. Fluid attenuation of the right upper outer quadrant right breast measuring up to 5.4 cm is suggestive of postoperative edema/developing seroma. 3. 5.6 cm right axillary fluid attenuating structure is suggestive of a postoperative seroma versus lymphocele. 10/01/2019. CT of abdomen/pelvis. IMPRESSION: 1. No evidence of metastatic disease in abdomen or pelvis. 10/01/2019. Bone scan. IMPRESSION: There is no scintigraphic evidence of osseous metastatic disease. 07/2021. Status post oophorectomy. Had been on tamoxifen. She was changed to anastrozole. 01/2022. Converted from anastrozole to letrozole due to vasomotor symptoms. 09/15/2022. Radiation oncology follow-up. She continues to have edema of the breast. She had gone to the lymphedema clinic in [place] on a regular basis. She has completed that program. She states she does continue to do the lymphedema exercises at home. She has some mild discomfort in the area of the axilla. Her antiestrogen therapy was changed to letrozole. With the change she has greatly improved in regards to joint pain and discomfort. She no longer has hot flashes. She has undergone DEXA scanning. She is up-to-date on mammography. He does continue to smoke 1 pack of cigarettes per day. 09/11/2023. Bilateral screening mammogram. BI-RADS 2. Benign. No evidence of malignancy. 01/2024-04/09/2025. No follow-up due to insurance. 03/26/2025. Medical oncology follow-up (Dr. Ruby). Palpable left axillary lymph node. Patient also had been seen for chest pain. CT of the chest to rule out PE was ordered for soon as possible. She continues on letrozole 2.5 mg daily. Mammography is scheduled for 01/07/2026. 03/26/2025. CTA of the chest. 1. No pulmonary emboli identified. 2. 3.5 x 2.4 cm ill-defined anterior mediastinal soft tissue density which is new since CT of October 01, 2019. This is suspicious for a neoplastic process and may represent a pathologic lymph node or implant. Additional mildly enlarged prevascular, right retropectoral and bilateral supraclavicular lymph nodes. Differential concerns include jeana spread of breast cancer or lymphoma. Left supraclavicular lymph node would likely be amenable to ultrasound-guided fine- needle aspiration. 3. Subtle permeative appearance of the sternum which is worrisome for a sternal lesion. 4. No consolidation to suggest pneumonia. 04/01/2025. PET/CT. 1. Bilateral upper chest metastatic adenopathy, right greater than left. Right axillary metastatic adenopathy. 2. Metastatic anterior mediastinal mass. 3. Osseous metastatic disease. 04/08/2025. FNA of left supraclavicular lymph node. Metastatic carcinoma most consistent with breast primary. Comment: To few tumor cells are present in cellblock for true quantification of pathologic markers or additional testing. 04/13/2025. Medical oncology follow-up. Review of pathology. Patient will need further tissue sampling to obtain markers. Recommendation for surgical consultation. 04/17/2025. Emergency room evaluation and admission for intractable lower back pain. 04/17/2025. CT of the abdomen pelvis. Bilateral nonobstructing renal calculi 04/17/2025. CT of the lumbar spine. Redemonstrated ill-defined lucencies of the left sacral ala and L3 vertebral body as above, corresponding to metabolically active lesions identified in the recent PET/CT examination. There appear to be cortical breakthroughs along the inferior endplate and posterior margin of L3 vertebral body. This could represent tumor extension into the spinal canal and the right neural foramen as well as into L3-4 disc space may be contributing to moderate neural foraminal on the right side. These soft tissue processes are poorly evaluated in CT. If indicated, recommend further evaluation with lumbar spine MRI when clinically appropriate 04/17/2025. MRI of the lumbar spine. There are bone marrow lesions in the T12, L3, L4, S1 and S2 vertebral bodies concerning for metastatic disease. No evidence of pathologic fracture or epidural tumor in this noncontrast study. 04/18/2025. MRI of the brain. Unremarkable MRI of the brain. 04/20/2025. Radiation oncology consultation. Patient has been hospitalized due to severe lower back pain. This began approximately 1-1/2 weeks ago. There can be radiation towards right thigh. Any type of movement increases the pain she notes this with sitting up or standing up. Rolling over and twisting increases pain. She tried home modalities with heat, Tylenol and ibuprofen. Pain study came more severe to the point that she presented to the emergency room. She has been found to have metastatic breast disease. Consultation was placed for further tissue sampling to be used for additional studies. Our office was consulted in regards to her back pain. Dr. Turner visited the patient while I was there. They are planning a repeat IR guided biopsy to obtain further tissue. Allergies Allergy/AdvReac Type Severity Reaction Status Date / Time ethinyl estradiol Allergy Severe Nausea/SOB Verified 09/15/22 09:06 [From Sprintec (28)] meperidine [From Demerol] Allergy Severe Nausea/Vomi Verified 09/15/22 09:06 ting norgestimate Allergy Severe Nausea/SOB Verified 09/15/22 09:06 [From Sprintec (28)] Home Medications Medication Instructions Recorded Confirmed Type famotidine 20 mg tablet 20 mg PO BID 10/09/19 04/17/25 History propranolol 10 mg tablet 10 mg PO BID 10/09/19 04/17/25 History atorvastatin 20 mg tablet 20 mg PO DAILY 07/03/21 04/17/25 History escitalopram oxalate 20 mg tablet 20 mg PO DAILY 07/03/21 04/14/25 History levothyroxine 125 mcg tablet 125 mcg PO DAILY 07/03/21 04/17/25 History letrozole 2.5 mg tablet 2.5 mg PO DAILY 08/09/22 04/17/25 History pramipexole 0.125 mg tablet 0.125 mg PO DAILY 04/14/25 04/17/25 History Patient History Medical History Endometriosis Graves disease (~2004) Anxiety Migraine Hyperlipemia Acid reflux Hypothyroidism Depression Surgical History (Updated 08/09/22 @ 15:28 by Jyoti Stark RN) Status post cystoscopy with ureteral stent placement (~2014) Stent was removed day after placement History of lithotripsy (~2014) History of oral surgery (~2006) Extractions of all upper and lower teeth History of D&C x 3 History of total abdominal hysterectomy (~2018) has 1 ovary remaining History of lumpectomy of right breast Right breast invasive ductal carcinoma grade 2 ER/NE positive and HER2 negative, stage 1A History of laparoscopy x 6 Family History (Updated 10/09/19 @ 10:41 by Brandi Neville RN) Mother , Passed age 59 of pneumonia No problems noted. Father No problems noted. Brother No problems noted. Brother No problems noted. Sister , Half - Passed age 41 of MVA No problems noted. Daughter No problems noted. Son No problems noted. 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 Ultrasound-guided core needle biopsies. Invasive ductal carcinoma, grade 2. Estrogen receptor positive, progesterone receptor positive, and HER- 2/erick negative 08/22/2019. Needle localization right breast partial mastectomy and sentinel lymph node biopsy. Stage [id number]. Stage I A Oncotype DX score of 23. 11/26/2019. Status post completion of radiation therapy. She received 5130 cGy utilizing hypo-fractionation. Review of Systems Review of Systems: 13 point review of systems completed. S he has been having some headaches. T hese have not progressed. All other areas negative other than what is mentioned in the history of present illness. Physical Exam Constitutional: WD/WN, vitals as above Eyes: PERRL, conjunctivae normal, anicteric sclerae ENMT: Ears: no hearing impairment Neck: trachea midline, no thyromegaly Respiratory: normal respiratory effort, lungs clear to auscultation Cardiovascular: RRR, no murmur, no edema Chest (Breasts): Additional Comments: Mild raised area upper third of sternum. Gastrointestinal (Abdomen): normal bowel sounds, soft, nontender, no hepatosplenomegaly Musculoskeletal: Area of pain is notable sacral spine region. Pain with movement. Skin: no rashes, warm and dry Psychiatric: A+Ox3, euthymic affect Lymphatic: + axillary lymphadenopathy Results (Rad Onc) Pathology Results: were reviewed and pertinent findings noted in HPI Imaging Studies: were reviewed and pertinent findings noted in HPI Time Spent Midlevel I spent [20] minutes in preparation for this follow up evaluation including reviewing all the clinical records, reviewing laboratory studies, pathology reports and imaging results. I spent [25] minutes with direct face to face interaction with the patient and/or family including performing a physical exam and answering all questions. I spent [15] minutes documenting this patient's visit. Attending I spent 15 minutes in preparation for this evaluation including reviewing all the clinical records, reviewing laboratory studies, pathology reports and imaging results. I spent 15 minutes with direct face to face interaction with the patient and/or family including performing a physical exam and answering all questions. I spent 10 minutes documenting this patient's visit. PG Care Time/CCT Total # of Minutes Spent Total Time Spent with Patient: Total time spent is greater than 50% in coordination of care (as documented) at patient's floor/unit and/or counseling patient: [place] [address] IN/OBS CONSULT LVL 5,80M Patient Type Established History Problem Focused Exam Problem Focused Medical Decision Making Moderate Complexity Diagnoses Pain from bone metastases G89.3; C79.51
--- NOTE | 2025-04-20 12:39 | Surgery Progress Note ---
Date of Service April 20, 2025 Assessment & Plan (1) Breast cancer: Plan: Pt here w/ metastatic breast ca Oncology would like more tissue diagnosis as previous LN biopsy without adequate tissue sampling Discussed with IR who is willing to perform another FNA in the + lymph node (left supraclavicular) for us, if again inadequate sampling for diagnosis will have to have breast center place a fadumo fire apparatus engineer in the LN or IR place a needle localization for us to be able to surgically remove the lymph node IR was able to perform the procedure today, will follow up on results We will follow peripherally, please call us with any questions/concerns or if need arises for surgical LN biopsy (2) Metastasis: Admission and Anticipated Discharge Date Admission Date: April 17, 2025 Supervising Physician Co-Signing Physician Notes I have seen and examined this patient this am. The left supraclavicular lymph node is not palpable. IR will try to make an additional attempt at biopsy today. F/U results. If still not enough to accurately provide all prognostic information, will have the area needle localized and plan for surgical excision Subjective Patient doing okay. Offers no complaints on our visit. Physical Exam Physical Exam: awake/alert, no distress Skin: unable to fully palpate L supra clavicular LN Results & Data Vital Signs (Past 12 Hours) Vital Signs Temp Pulse Resp BP Pulse Ox O2 Del Method 04/20/25 07:10 98.4 F 58 L 16 126/75 92 Room Air PG Care Time/CCT Total # of Minutes Spent Total Time Spent with Patient: Total time spent is greater than 50% in coordination of care (as documented) at patient's floor/unit and/or counseling patient: Coding Level of Care Code 87884 SUB INP/OBS CARE 06/14MIN Diagnoses Breast cancer C50.919 Breast location: unspecified site of breast Estrogen receptor status: unspecified Laterality: unspecified laterality Patient sex: female Metastasis C79.51 Area of secondary neoplastic involvement: bone (1) Breast cancer Breast location: unspecified site of breast Estrogen receptor status: unspecified Laterality: unspecified laterality Patient sex: female Qualified Code(s): C50.919 - Malignant neoplasm of unspecified site of unspecified female breast (2) Metastasis Area of secondary neoplastic involvement: bone Qualified Code(s): C79.51 - Secondary malignant neoplasm of bone
--- NOTE | 2025-04-20 15:07 | Ultrasound Report ---
ULTRASOUND-GUIDED LEFT SUPRACLAVICULAR LYMPH NODE FNA CLINICAL HISTORY: Left supraclavicular lymph node; history of metastatic breast carcinoma PROCEDURE: Procedure and risks were complained. Informed consent was obtained. A final timeout was co mpleted. The neck was prepped and draped in sterile fashion. 1% lidocaine was utilized for skin anest hesia. Utilizing ultrasound guidance, a 22-gauge needle was advanced into the left supraclavicular lymph nod e. Ultrasound images were obtained. 3 aspirates were obtained and given to the pathologist for review . Scant cellularity was noted on all 3 aspirates during the rapid on-site evaluation. No further aspi ration was obtained. The patient tolerated the procedure well. IMPRESSION: Left supraclavicular lymph node FNA as detailed above. Performed, dictated, and signed by Rashad oJy PA-C; to be co-signed by Dr. Israel Stern. Electronically signed by: Israel Stern M.D. 04/20/2025 3:31 PM
--- NOTE | 2025-04-20 17:50 | Hospitalist Progress Note ---
Date of Service April 20, 2025 Assessment & Plan (1) Intractable back pain: (2) Breast cancer, stage 4: (3) Tobacco use: Plan Patient is a 44-year-old female with a past medical history including Graves' disease, anxiety/depression, HLD, breast cancer. She presented due to 1.5 w eeks of severe progressive low back pain that radiates to her right hip and leg. Patient was found to have new L3 metastasis on PET scan 04/01. Workup in the ED revealed bilateral nonobstructing renal calculi as well as possible L3 tumor extension into the right neural foramen. She is being admitted for intractable pain and further workup regarding metastasis on 04/17/2025. #Stage IV breast cancer w/ mets to lumbar spine | intractable cancer related pain Follows w/ Dr. Ruby outpatient. s/p lumpectomy in 2018 & radiation in 2019. Now on Letrozole which has been continued. Laboratories unremarkable. Brain MRI negative for acute pathology. Lumbar MRI : Bone marrow lesions at T12, L3, L4, S1, S2 concerning for metastatic disease. General Surgery consult appreciated Will plan for IR FNA biopsy of the left supraclavicular lymph node; if again inadequate, will have to have breast center place a Regina hangersmith Lovenox remains on hold Oncology consult appreciated Radiation oncology consult appreciated Continue 6mg IV Dexamethasone daily Pain control: Tylenol, Toradol, Dilaudid PRN Added Scheduled 12mcg Fentanyl patch 04/19 However, patient still noting 8 out of 10 pain on 04/20 despite receiving IV Dilaudid 1mg q2-4h Palliative care consult appreciated to assist with pain control Zofran PRN for N/V #Tobacco use disorder 1 pack/day cigarettes Nicotine patch ordered Encourage smoking cessation #Hypothyroidismcontinue levothyroxine #HTNcontinue propranolol #RLScontinue Pramipexole #HLDcontinue statin #Anxiety/depressioncontinue escitalopram #GERDcontinue famotidine Disposition: Continued stay in the setting of FNA biopsy/pain control VTE ppx: FNA biopsy obtained on 04/20; will plan to resume normal dosing of Lovenox on the morning of 04/21 Code: DNR/DNI Admission and Anticipated Discharge Date Admission Date: April 17, 2025 Supervising Physician Co-Signing Physician Notes I personally saw the patient. I independently reviewed the labs, imaging, problem list, medication list, past medical history and family history. I discussed case with oncology and general surgery regarding the plan. I verified all ogden points and agree with Talha Lazcano PA-C with the following exceptions and/or additions: None Subjective Mrs. Araiza reports she is still having 7 out of 10 pain in her lower back at this time, but that receiving IV Dilaudid every 2 hours helps manage her pain while in the hospital. She characterizes it as a "zapping" pain, made worse when bearing weight. She does understand that she will not be able to take IV Dilaudid upon discharge from the hospital. She does have occasional shooting pain down the right side of her upper leg. No numbness or tingling in the legs. No saddle anesthesia. No episodes of urinary/fecal incontinence. Patient is unsure if lidocaine patches have been helping her pain. ROS: Patient endorses lower back pain Patient denies chest pain, SOB, abdominal pain, N/E/D, saddle anesthesia, urinary/fecal incontinence, or numbness or tingling going down the legs. Review of Systems Review of Systems: See HPI above Physical Exam Physical Exam: General: no acute distress; sitting upright at the side of her bed eating lunch; non-toxic appearing; cooperative; SpO2 91% on RA HEENT: normocephalic, atraumatic; PERRLA; vision and hearing intact Neck: supple; trachea midline Skin: warm, dry without signs of tenting; no cyanosis; no rashes, bruising, lesions, or erythema noted CV: chest wall NTP; RRR; S1/S2 normal; no murmurs/rubs/gallops; pulses intact and symmetric at radial, DP, and PT Lungs: no acute respiratory distress; symmetrical chest wall expansion; clear breath sounds across all lung shel[place] w/o adventitious sounds; no wheezing ABD: Soft, NTP; BS present; no rebound/guarding; no distention Back: No signs of rashes or bruising on the back or flanks bilaterally; upper spine NTP; lower spine NTP, however lower right flank is mildly TTP MSK: no tics or fasciculations; no edema noted in the LEs b/l, nonerythematous; plantarflexion exacerbates her lower back pain Neuro: A&Ox3; normal mood and affect; fluent speech; patient reports sensation is intact and symmetric in lower extremities bilaterally A/P light touch Results & Data Results & Data Vital Signs (Past 12 Hours) Vital Signs Temp Pulse Resp BP Pulse Ox O2 Del Method 04/20/25 14:44 36.9 C 63 18 147/83 H 91 Room Air 04/20/25 07:35 Room Air 04/20/25 07:10 36.9 C 58 L 16 126/75 92 Room Air PG Care Time/CCT Total # of Minutes Spent Total Time Spent with Patient: Total time spent is greater than 50% in coordination of care (as documented) at patient's floor/unit and/or counseling patient: Coding [place] [address] SUB INP/OBS CARE 3/50MIN Patient Type Established Medical Decision Making High Complexity Diagnoses Intractable back pain M54.9 Breast cancer, stage 4 C50.919 Tobacco use Z72.0
--- NOTE | 2025-04-21 14:22 | Hospitalist Progress Note ---
"Date of Service April 21, 2025 Assessment & Plan (1) Intractable back pain: (2) Breast cancer, stage 4: (3) Tobacco use: Plan Patient is a 44-year-old female with a past medical history including Graves' disease, anxiety/depression, HLD, breast cancer. She presented due to 1.5 w eeks of severe progressive low back pain that radiates to her right hip and leg. Patient was found to have new L3 metastasis on PET scan 04/01. Workup in the ED revealed bilateral nonobstructing renal calculi as well as possible L3 tumor extension into the right neural foramen. She is being admitted for intractable pain and further workup regarding metastasis on 04/17/2025. #Stage IV breast cancer w/ mets to lumbar spine | intractable cancer related pain Follows w/ Dr. Ruby outpatient. s/p lumpectomy in 2019 & radiation in 2019. Now on Letrozole which has been continued. Laboratories unremarkable. Brain MRI negative for acute pathology. Lumbar MRI : Bone marrow lesions at T12, L3, L4, S1, S2 concerning for metastatic disease General Surgery consult appreciated IR performed FNA biopsy of the left supraclavicular lymph node on 04/20, however this was again an adequate sample Planned excisional node biopsy on 04/21 Lovenox remains on hold Oncology consult appreciated Radiation oncology consult appreciated Continue 6mg IV Dexamethasone daily Initially, pain was not well-controlled with Tylenol, Toradol, and Dilaudid PRN Palliative care consult appreciated for additional pain control measures Uptitrate TDF to 25 mcg on 04/21 Continue IV Dilaudid PRN for breakthrough Planned gradual increase in TDF dosage due to the patient being opioid marbin MiraLAX PRN + Senna Narcan PRN Continous pulse oximetry Zofran PRN for N/V #Tobacco use disorder 1 pack/day cigarettes Nicotine patch ordered Encourage smoking cessation #Hypothyroidismcontinue levothyroxine #HTNcontinue propranolol #RLScontinue Pramipexole #HLDcontinue statin #Anxiety/depressioncontinue escitalopram #GERDcontinue famotidine Disposition: Continued stay on MedSurg VTE ppx: Lovenox to remain on hold in the setting of surgical node excision today on 04/21 Admission and Anticipated Discharge Date Admission Date: April 17, 2025 Supervising Physician Co-Signing Physician Notes I did not se or examine the patient. I verified all ogden points and agree with Talha Lazcano PA-C with the following exceptions and/or additions: None Subjective Mrs. Araiza is seen in the PACU following her excisional lymph node biopsy. While A&O x 3, she reports feeling tired/groggy following her procedure. She denies any chest pain, SOB, difficulty swallowing, or sore throat following the procedure. No nausea or vomiting. She also denies having any back pain at this time. Overall, she reports she is doing well. No new complaints at this time. ROS: Patient denies chest pain, SOB, cough, sore throat, abdominal pain, nausea, vomiting, or lower back pain at this time. Review of Systems Review of Systems: See HPI above Physical Exam Physical Exam: General: no acute distress; Aurelia hugger in place; generalized fatigue, but response to all questioning appropriately; non-toxic appearing; cooperative; SpO2 95% on RA HEENT: normocephalic, atraumatic; PERRLA; vision and hearing intact Neck: supple; trachea midline Skin: warm, dry without signs of tenting; no cyanosis; no rashes, bruising, lesions, or erythema noted CV: chest wall NTP; RRR; S1/S2 normal; no murmurs/rubs/gallops; pulses intact and symmetric at radial, DP, and PT Lungs: no acute respiratory distress; symmetrical chest wall expansion; clear breath sounds across all lung [place] w/o adventitious sounds; no wheezing ABD: Soft, NTP; BS present; no rebound/guarding; no distention MSK: no tics or fasciculations; no edema noted in the LEs b/l, nonerythematous; 5/5 adult education manager strength bilaterally; patient demonstrates ability to wiggle toes bilaterally Neuro: A&Ox3; normal mood and affect; fluent speech; patient reports sensation is intact and symmetric in lower extremities bilaterally assessed via light touch Results & Data Results & Data Vital Signs (Past 12 Hours) Vital Signs Temp Pulse Resp BP Pulse Ox O2 Del Method 04/21/25 07:08 36.8 C 55 L 16 136/83 94 Room Air PG Care Time/CCT Total # of Minutes Spent Total Time Spent with Patient: Total time spent is greater than 50% in coordination of care (as documented) at patient's floor/unit and/or counseling patient: C[place] [address] SUB INP/OBS CARE 235MIN Patient Type Established Medical Decision Making Moderate Complexity Diagnoses Intractable back pain M54.9 Breast cancer, stage 4 C50.919 Tobacco use Z72.0"
[2025-04-21] MEDS ORDERED: DEXAMETHASONE SOD INJ 4 MG/ML VIAL ONE (14:25)
[2025-04-21] MEDS ORDERED: PROPOFOL IV EMULSION 10 MG/ML 20 ML VIAL IV ONE (14:25)
[2025-04-21] MEDS ORDERED: ONDANSETRON INJ 2 MG/ML 2 ML VIAL ONE (14:25)
[2025-04-21] MEDS ORDERED: LIDOCAINE 2% 2 ML VIAL/AMP(20MG/ML) INFIL ONE (14:25)
[2025-04-21] MEDS ORDERED: MIDAZOLAM HCL 1 MG/ML 2ML VIAL ONE (14:26)
--- NOTE | 2025-04-21 15:12 | Palliative Care Consultation ---
Date of Consultation April 21, 2025 Assessment & Plan (1) Cancer related pain: Inc TDF to 25mcg, likely she needs closer to 50mcg but will inc dose slowly as she is opioid naive Continue prn dilaudid for now await IR bx today (2) Palliative care by specialist: Introduced Palliative Medicine and explained our role in patient's care. Patient and/or family were receptive to palliative services for goals of care discussions. Reviewed we are different from hospice, [facility] (3) Therapeutic opioid-induced constipation (OIC): Miralax daily prn and senna S 2 tabs added, her usual is BM q2 days, no BM x 3 days now (4) Advanced care planning/counseling discussion: Face to face ACP at bedside for 30min Worries about mortality and her research led her to believe she will soon but this has not been the opinion from med onc. Reassurance given, encouraged pt to be open with providers about her high information seeking needs and to be addressed clinically with information which helps her feel more in control. Empathized with her frustration re biopsies and what she feels is delaying her start of chemo and taking away her "best chance" to fight this cancer She is not ready to face mortality She wants to live for as long as she can and feels she would for now accept any intervention and therapy that is offered to achieve this goal She has 2 adult kids in 21 and 23, she also has several grandchildren. They all live within 20 min of her home and see her often. 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 Also advised of cancer clinic navigators who can help with resources once she is back in clinic. Plan As above Thank you for allowing us to participate in the ongoing care of this patient. Please page with any additional concerns. 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 She c/o 2 weeks of right lower back pain which radiates in a "zinging sharp way" to the right hip. Any movement of any sort worsens the pain and can generate that "zapping" sensation No chest pain, dyspnea, fall PMH: Graves' disease, anxiety/depression, HLD, breast cancer. 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 I just want this figured out so I can get treatment started like now and get the best chance to live longer." She had a Stage I breast cancer initially dx 2019: s/p lumpectomy August 2019 and radiation in 2019, maintained on letrozole. New metastasis 04/01 on PET scan. Stat brain MRI 04/19 and further lymph node biopsy with Dr. Sanford 02/18 Quality patient is 2023: 2011 Hx. She was seen in emergency department at [facility] a few weeks ago with chest pain and had a negative cardiac workup. No imaging was obtained at that time. Mammogram from August 2024 was negative for breast cancer recurrence. She was initially diagnosed with a right breast invasive ductal carcinoma grade 2 ER/CA positive and HER2 negative breast was at that time a stage Ia breast cancer pT1 cpN0. A right core breast biopsy on July 21, 2019 showed invasive ductal carcinoma grade 2 of 3, ER/CA positive both 100%, HER2 negative. She had high-grade DCIS with microcalcifications. Breast MRI August 14, 2019 demonstrated focal ill-defined right breast lesion at the 10- 11 o'clock region measuring 2.1 x 1.1 x 2 cm at that time there is no evidence of malignancy in the left. She underwent a lumpectomy of the right breast on 08/22/2019 which showed IDC grade 2 of 3 measuring 2 cm at the greatest dimension and DCIS was present. There is no lymphovascular invasion noted. The lobular carcinoma in situ was present. Bone scan October 01, 2019 negative for metastatic disease. She completed fractionated RT 11/26/2019 and started tamoxifen in November 2019. Nephrectomy was undertaken July 2021 and she was converted to anast rozole following this intervention. Unfortunately she developed vasomotor symptoms with the anastrozole and moved to letrozole therapy in January 2022. Bilateral screening mammo in August 2023 was benign and read as no evidence of breast malignancy. She did mention right breast skin changes with a negative punch biopsy of a skin sparing in 2020. She has a palpable left axillary lymph node. Parents patient recently abnormal left brachial lymph node followed by ultrasound in to be a metastatic disease most consistent with breast cancer but limited to few cells to provide necessary more additional treatment. Recent lymph node biopsy sample was suggestive of ER/CA negative disease but insufficient for ancillary testing to confirm. An excisional lymph node biopsy was recommended hopefully to be done while she is inpatient. Surgical consent was obtained and it was determined patient will return to IR for another FNA and then lymph node left supraclavicular, and adequate sampling at that time to have the breast center to place a [place] boiler inspector and the lymph node for IR placing needle localization for surgery to be able to reach surgical removal. She has been started on transdermal fentanyl 12 mcg daily and has the option of Dilaudid IV breakthrough pain. She has been tolerating to room 8.5 mg of IV Dilaudid in the last 24 hours. This is equal to about 128 oral morphine equivalents or 43 mg of IV morphine equivalents. Allergies Allergy/AdvReac Type Severity Reaction Status Date / Time ethinyl estradiol Allergy Severe Nausea/SOB Verified 09/15/22 09:06 [From Sprintec (28)] meperidine [From Demerol] Allergy Severe Nausea/Vomi Verified 09/15/22 09:06 ting norgestimate Allergy Severe Nausea/SOB Verified 09/15/22 09:06 [From Sprintec (28)] Home Medications Medication Instructions Recorded Confirmed Type famotidine 20 mg tablet 20 mg PO BID 10/09/19 04/17/25 History propranolol 10 mg tablet 10 mg PO BID 10/09/19 04/17/25 History atorvastatin 20 mg tablet 20 mg PO DAILY 07/03/21 04/17/25 History escitalopram oxalate 20 mg tablet 20 mg PO DAILY 07/03/21 04/14/25 History levothyroxine 125 mcg tablet 125 mcg PO DAILY 07/03/21 04/17/25 History letrozole 2.5 mg tablet 2.5 mg PO DAILY 08/09/22 04/17/25 History pramipexole 0.125 mg tablet 0.125 mg PO DAILY 04/14/25 04/17/25 History Patient History Medical History Endometriosis Graves disease (~2004) Anxiety Migraine Hyperlipemia Acid reflux Hypothyroidism Depression Surgical History (Updated 08/09/22 @ 15:28 by Jyoti Stark RN) Status post cystoscopy with ureteral stent placement (~2014) Stent was removed day after placement History of lithotripsy (~2014) History of oral surgery (~2006) Extractions of all upper and lower teeth History of D&C x 3 History of total abdominal hysterectomy (~2018) has 1 ovary remaining History of lumpectomy of right breast Right breast invasive ductal carcinoma grade 2 ER/CA positive and HER2 negative, stage 1A History of laparoscopy x 6 Family History (Updated 10/09/19 @ 10:41 by Brandi Neville RN) Mother , Passed age 59 of pneumonia No problems noted. Father No problems noted. Brother No problems noted. Brother No problems noted. Sister , Half - Passed age 41 of MVA No problems noted. Daughter No problems noted. Son No problems noted. 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 Feels Safe at Home: Yes Childhood Exposure to Second-Hand Smoke: Yes Diet: regular caffeine: Yes during the past year weight has: remained stable Dental Care, Regularly: No Assistive Devices: None Review of Systems Review of Systems: All systems reviewed & are unremarkable except as noted in Subjective Physical Exam Constitutional: well developed, well nourished and cooperative Eyes: PERRL, conjunctivae normal, anicteric sclerae ENMT: external ear and nose normal, oropharynx normal Neck: trachea midline, no thyromegaly neck nontender Respiratory: normal respiratory effort, lungs clear to auscultation able to speak in complete sentences and symmetric chest movement Cardiovascular: RRR, no murmur, no edema Gastrointestinal (Abdomen): normal bowel sounds, soft, nontender, no hepatosplenomegaly Musculoskeletal: pain across lower back and radiates into hip with movement positional changes with grimacing Skin: no rashes, warm and dry Neurologic: PERRL, EOMI, accommodation nl, no face palsy, no dysarthria Psychiatric: A+Ox3, euthymic affect mild anxiety very high information seeking Results & Data Vital Signs (Past 12 Hours) Vital Signs Temp Pulse Resp BP Pulse Ox O2 Del Method 04/21/25 07:35 Room Air 04/21/25 07:08 36.8 C 55 L 16 136/83 94 Room Air Laboratory Results 04/18/25 04/17/25 04/17/25 Range/Units 06:28 19:57 18:19 WBC 9.33 10.06 (4.8-10.8) K/ul RBC 4.30 4.36 (4.20-5.40) M/uL Hgb 14.3 14.8 (12.0-16.0) g/dL Hct 40.8 41.4 (37.0-47.0) % MCV 94.9 95.0 (80.0-100.0) fL MCH 33.3 33.9 (25.0-34.0) pg MCHC 35.0 35.7 (32.0-36.0) g/dL RDW Std Deviation 43.9 44.9 (36.4-46.3) fL RDW Coeff of Liz 12.8 12.8 (11.5-14.5) % Plt Count 254 253 (130-400) K/uL MPV 9.8 10.0 (9.4-12.4) fL Immature Gran % (Auto) 0.4 0.2 % Neut % (Auto) 82.5 55.1 % Lymph % (Auto) 15.5 32.3 % Dickens % (Auto) 1.2 8.0 % Eos % (Auto) 0.0 3.6 % Baso % (Auto) 0.4 0.8 % Neut # (Auto) 7.69 H 5.55 (1.40-6.50) K/uL Lymph # (Auto) 1.45 3.25 (1.20-3.40) K/uL Dickens # (Auto) 0.11 0.80 H (0.11-0.59) K/uL Eos # (Auto) 0.00 0.36 (0.00-0.50) K/uL Baso # (Auto) 0.04 0.08 (0.00-0.20) K/uL Immature Gran # (Auto) 0.04 0.02 (0.01-0.20) K/uL Sodium 136 137 (136-145) mmol/L Potassium 4.7 4.3 (3.5-5.1) mmol/L Chloride 103 104 (98-107) mmol/L Carbon Dioxide 23 24 (21-32) mmol/L Anion Gap 10 9 (3-11) BUN 16 16 (6-23) mg/dl Creatinine 0.64 0.69 (0.6-1.2) mg/dl Est Cr Clr Drug Dosing 145.5 127.0 ml/min eGFR 110.31 108.33 BUN/Creatinine Ratio 25.0 H 23.2 H (10-20) Glucose 163 H 83 (70-99(Fasting)) mg/dl Calcium 9.4 9.6 (8.6-10.3) mg/dl Magnesium 2.0 (1.7-2.4) mg/dl Total Bilirubin 0.4 0.5 (0.2-1.0) mg/dl AST 20 21 (13-39) U/L ALT 26 29 (7-52) U/L Alkaline Phosphatase 71 71 (34-104) U/L Total Protein 7.6 7.6 (6.0-8.3) gm/dl Albumin 4.4 4.1 (3.4-5.0) gm/dl Globulin 3.2 3.5 (2.5-4.0) gm/dl Albumin/Globulin Ratio 1.4 1.2 (0.9-2) Lipase 38 (11-82) U/L HCG, Qual Negative (Negative) Urine Color Yellow Urine Appearance Clear (Clear) Urine pH 5.5 (4.5-7.5) Ur Specific [place] 1.043 H (1.000-1.030) Urine Protein Negative (Negative) Urine Glucose (UA) Negative (Negative) Urine Ketones Negative (Negative) Urine Blood Negative (Negative) Urine Nitrite Negative (Negative) Urine Bilirubin Negative (Negative) Urine Urobilinogen Negative (Negative) Ur Leukocyte Esterase Trace H (Negative) Urine WBC (Auto) 0-5 (0-5) /hpf Urine RBC (Auto) 3-5 H (0-2) /hpf U Hyaline Cast (Auto) 0-2 (0-2) /lpf U Epithel Cells (Auto) 0-2 (0-2) /hpf Urine Bacteria (Auto) 1+ H (None Seen) Urine Comment Diagnostic Findings Abdomen/Pelvis CT 04/17/25 17:58 Clinical History: Right flank pain Technique: Axial computed tomography images were obtained of the abdomen and pelvis after the administration of intravenous contrast. Comparison is made to the prior CT dated 07/02/2021. Findings: The liver is overall of normal size, attenuation, and contour with no sign of cirrhosis or significant fatty infiltration. No liver mass lesion is seen. The portal vein is patent. The gallbladder appears unremarkable. No bile duct dilatation is noted. The spleen is of normal size. No focal splenic lesion is evident. The pancreas appears normal with no sign of acute or chronic pancreatitis and no mass lesion noted. The pancreatic duct is of normal caliber. The adrenal glands appear unremarkable. There is an 11 mm right renal calculus and there is a 2 mm left renal calculus. There is no hydronephrosis or perinephric stranding. No renal mass lesion is identified. The aorta is of normal caliber. No abdominal adenopathy is seen. The stomach appears normal. There is no sign of small bowel obstruction. The colon appears unremarkable. The appendix appears normal also. No free intraperitoneal fluid or air is identified. No distal ureteral or bladder calculi are seen. No bladder mass lesion is evident. The iliac arteries are of normal caliber. No pelvic adenopathy is noted. The uterus has been removed There is subsegmental atelectasis in the left lower lobe. No fracture is identified. No focal osseous lesion is seen Impression: Bilateral nonobstructing renal calculi Electronically signed by Celestine Ellington 04-17-2025 7:[address] 04/17/25 17:58 CT LUMBAR SPINE WITH CONTRAST: HISTORY: PAIN TECHNIQUE: Contrast enhanced CT examination of the lumbar spine is performed. Coronal and sagittal reformats were created. COMPARISON: PET CT April 01, 2025. FINDINGS: LUMBAR SPINE: There is no significant vertebral body height loss. There is no significant spondylolisthesis. Usual lumbar lordosis is preserved. There is an ill-defined lucency in the left sacral ala measuring approximately 3.8 cm in size. There is also a lucent lesion in the right lower aspect of L3 vertebral body measuring 2.0 cm in size. There appear to be cortical breakthroughs along the inferior endplate and posterior margin of the vertebral body. This could represent tumor extension into the spinal canal and the right neural foramen as well as into L3-4 disc space. This process may be contributing to moderate neural foraminal narrowing on the right side. Multilevel degenerative changes characterized by disc space loss, broad based disc bulge/herniations with endplate changes of the vertebral bodies with small marginal osteophytes as well as bilateral facet hypertrophy and thickening of the ligamentum flavum resulting in crowding of the subarticular recesses and narrowing of neural foramina worst at L4-S1. 9 mm nonobstructing calculus in the lower pole of the right kidney IMPRESSION: Redemonstrated ill-defined lucencies of the left sacral ala and L3 vertebral body as above, corresponding to metabolically active lesions identified in the recent PET/CT examination. There appear to be cortical breakthroughs along the inferior endplate and posterior margin of L3 vertebral body. This could represent tumor extension into the spinal canal and the right neural foramen as well as into L3-4 disc space may be contributing to moderate neural foraminal on the right side. These soft tissue processes are poorly evaluated in CT. If indicated, recommend further evaluation with lumbar spine MRI when clinically appropriate Electronically signed by Mark Castellano 04-17-2025 7:52 PM Lumbar Spine MRI 04/17/25 20:31 Exam(s): MRI L SPINE Without Contrast EXAM: MR Lumbar Spine Without Intravenous Contrast CLINICAL HISTORY: Reason for exam: possible L3 tumor extension. OTHER: Other Notes: pt states came to ED with lower back pain hx of breast cancer, diagnosed in July [address] possible metastatic lesions seen on CT lumbar today in L3 region and left sacral ala possible tumor extension into L3 metabolically active lesions seen on prior PET scan corresponding with these lesions follow up, radiologist who read CT recommended MRI lumbar TECHNIQUE: Magnetic resonance images of the lumbar spine without intravenous contrast in multiple planes. COMPARISON: No relevant prior studies available. FINDINGS: Vertebrae: There are 5 lumbar type vertebral bodies with a mild generalized curved to the right and normal lumbar lordosis. There is normal vertebral body height and alignment. There are bone marrow lesions in the T12 L3, L4, S1 and S2 segments. No acute fracture. Spinal cord: Unremarkable. Normal signal. Soft tissues: Advanced atrophy of the iliopsoas, paraspinous intraspinous musculature. The aorta and IVC flow voids are intact. Tiny left renal cyst. IMPRESSION: There are bone marrow lesions in the T12, L3, L4, S1 and S2 vertebral bodies concerning for metastatic disease. No evidence of pathologic fracture or epidural tumor in this noncontrast study. Electronically signed by: Karie Shea MD 04/17/25 23:14 PM Brain MRI 04/18/25 08:07 Clinical History: Breast cancer. Rule out metastatic disease Technique: Multiple T1 and T2-weighted magnetic resonance images were obtained of the brain both before and after the administration of 11 cc of Gadavist intravenous gadolinium contrast Findings: There is no sign of acute or old infarction with normal-appearing diffusion weighted images. No definite focus of demyelination is seen. No mass lesion or other area of abnormal enhancement is identified. There is no intracranial hemorrhage or other fluid collection. No midline shift or other form of herniation is seen. There is no hydrocephalus. There is cavum septum pellucidum, a normal variant. The pituitary gland appears normal. Normal flow-voids are seen within the arteries of the [id number]. The orbits and paranasal sinuses appear normal. The mastoid air cells appear clear Impression: Unremarkable MRI of the brain Electronically signed by Celestine Ellington 04-18-2025 09:57 AM Aspiration 04/20/25 10:14 ULTRASOUND-GUIDED LEFT SUPRACLAVICULAR LYMPH NODE FNA CLINICAL HISTORY: Left supraclavicular lymph node; history of metastatic breast carcinoma PROCEDURE: Procedure and risks were complained. Informed consent was obtained. A final timeout was completed. The neck was prepped and draped in sterile fashion. 1% lidocaine was utilized for skin anesthesia. Utilizing ultrasound guidance, a 22-gauge needle was advanced into the left supraclavicular lymph node. Ultrasound images were obtained. 3 aspirates were obtained and given to the pathologist for review. Scant cellularity was noted on all 3 aspirates during the rapid on-site evaluation. No further aspiration was obtained. The patient tolerated the procedure well. IMPRESSION: Left supraclavicular lymph node FNA as detailed above. Performed, dictated, and signed by Rashad Joy PA-C; to be co-signed by Dr. Israel Stern. Electronically signed by: Israel Stern M.D. 04/20/2025 3:31 PM PG Care Time/CCT Total # of Minutes Spent Total Time Spent with Patient: Total time spent is greater than 50% in coordination of care (as documented) at patient's floor/unit and/or counseling patient: I spent 95 minutes overall addressing this case: 15 min in medical data review/discussion with referring provider(s) and/or preparation for the visit 20 min in direct interaction with the patient/exam 30 min in Advance Care Planning/Goals of Care discussions as detailed above in note (must be >16min) 15 min in subsequent review and synthesis of assessment and plan 15 min communicating with other providers regarding the patient's case: Advanced Care Planning 33875 Advanced Care Planning 30 [place] [address] IN/OBS CONSULT LVL 5,80M (25 - SIGNIFICANT, SEPARATELY IDENTIFIABLE ) Patient Type New Medical Decision Making High Complexity Diagnoses Cancer related pain G89.3 Palliative care by specialist Z51.5 Therapeutic opioid-induced constipation (OIC) K59.03; T40.2X5A Advanced care planning/counseling discussion Z71.89 Additional Codes Advanced Care Planning - 49872 Advanced Care Planning 30 Min: 36800 Advanced Care Planning 30 Min ([id number]) Comment [id number], [id number]
[2025-04-21] MEDS ORDERED: ONDANSETRON INJ 2 MG/ML 2 ML VIAL IV PRN (15:24)
[2025-04-21] MEDS ORDERED: ATROPINE SULFATE 0.1 MG/ML 10ML SYR IV PRN (15:24)
--- NOTE | 2025-04-21 15:24 | Anesthesiology Consultation ---
Date of Service April 21, 2025 Assessment & Plan Chart Review Chart Review: Acceptable Risk for Surgery and Patient NOT seen in Pre Admission Testing Consults Requested none ASA ASA4 Proposed Anesthesia Anesthesia Type: General and MAC Risk / Benefits Reviewed With: PT / POA / Parent / Guardian, Accepts Plan and Informed Consent Obtained History Surgery Operation Date: 04/20/25 08:20 Proposed Procedures p Left Axillary Lymph Node Biopsy - Nelly Turner DO Operation Date: 04/21/25 08:40 Proposed Procedures p Left Supraclavicular Excisional Node Biopsy (Needle Localization) - Nelly Turner, Height/Weight Height: 5 ft 8 in Weight: 114 kg Allergies Allergy/AdvReac Type Severity Reaction Status Date / Time ethinyl estradiol Allergy Severe Nausea/SOB Verified 04/21/25 15:17 [From Sprintec (28)] meperidine [From Demerol] Allergy Severe Nausea/Vomi Verified 04/21/25 15:17 ting norgestimate Allergy Severe Nausea/SOB Verified 04/21/25 15:17 [From Sprintec (28)] Medications Home Medications Medication Instructions Recorded Confirmed Last Taken famotidine 20 mg tablet 20 mg PO BID 10/09/19 04/17/25 Unknown propranolol 10 mg tablet 10 mg PO BID 10/09/19 04/17/25 Unknown atorvastatin 20 mg tablet 20 mg PO DAILY 07/03/21 04/17/25 Unknown escitalopram oxalate 20 mg tablet 20 mg PO DAILY 07/03/21 04/14/25 Unknown levothyroxine 125 mcg tablet 125 mcg PO DAILY 07/03/21 04/17/25 Unknown letrozole 2.5 mg tablet 2.5 mg PO DAILY 08/09/22 04/17/25 Unknown pramipexole 0.125 mg tablet 0.125 mg PO DAILY 04/14/25 04/17/25 Unknown Active Medications Generic Name Dose Route Start Last Admin Trade Name Freq PRN Reason Stop Dose Admin Atorvastatin Calcium 20 mg 04/18/25 09:00 04/21/25 08:17 Atorvastatin 20 Mg Tab PO 05/18/25 08:59 20 mg DAILY PATRICIA Administration Enoxaparin Sodium 40 mg 04/18/25 02:24 04/21/25 05:06 Enoxaparin Inj 40 Mg/0.4 Ml Syr SQ 05/18/25 02:23 Not Given Q24H PATRICIA Escitalopram Oxalate 20 mg 04/18/25 09:00 04/21/25 08:18 Escitalopram Oxalate 20 Mg Tab PO 05/18/25 08:59 20 mg DAILY PATRICIA Administration Famotidine 20 mg 04/18/25 02:24 04/21/25 08:17 Famotidine 20 Mg Tab PO 05/18/25 02:23 20 mg BID PATRICIA Administration Fentanyl 1 patch 04/19/25 11:00 04/19/25 11:48 Fentanyl 12 Mcg/Hr Tdsy TD 05/03/25 10:59 1 patch Q3D PATRICIA Administration Hydromorphone HCl 1 mg 04/19/25 10:58 04/21/25 13:55 Hydromorphone Inj 1 Mg/Ml Syringe IV 05/03/25 10:57 1 mg Q2H PRN Administration Pain 8,9,10 Hydromorphone HCl 0.5 mg 04/19/25 10:58 04/20/25 06:00 Hydromorphone Inj 0.5 Mg/0.5 Ml Syr IV 05/03/25 10:57 0.5 mg Q2H PRN Administration Pain 6,7 Dexamethasone 6 mg/ Syringe 1.5 mls @ 1 mls/min 04/18/25 09:00 04/21/25 08:17 IV 05/18/25 08:59 1 mls/min DAILY PATRICIA Administration Ketorolac Tromethamine 10 mg 04/18/25 02:24 04/18/25 07:51 Ketorolac Tromethamine 15 Mg/Ml Vial IV 04/23/25 02:23 10 mg Q6H PRN Administration Pain Letrozole 2.5 mg 04/18/25 09:00 04/21/25 08:18 Letrozole 2.5 Mg Tab PO 05/18/25 08:59 2.5 mg DAILY PATRICIA Administration Levothyroxine Sodium 125 mcg 04/18/25 06:30 04/21/25 05:55 Levothyroxine Sodium 125 Mcg Tablet PO 05/18/25 06:29 125 mcg DAILYBB PATRICIA Administration Lidocaine 1 patch 04/18/25 09:00 04/21/25 08:18 Lidocaine 5% 1 Patch TD 05/18/25 08:59 Not Given QAM PATRICIA Miscellaneous 1 each 04/18/25 02:24 04/20/25 20:40 Remove Lidoderm Patch N/A 05/18/25 02:23 1 each DAILY@2100 PATRICIA Administration Miscellaneous 1 each 04/18/25 08:59 04/21/25 08:16 Remove Nicoderm Patch N/A 05/18/25 08:58 Not Given DAILY@0859 PATRICIA Miscellaneous 1 each 04/19/25 11:00 04/19/25 11:51 Fentanyl Patch Remove & Waste N/A 05/19/25 10:59 Not Given Q3D PATRICIA Miscellaneous 1 each 04/19/25 16:00 04/21/25 08:15 Check Fentanyl Patch Placement N/A 05/19/25 15:59 1 each QS PATRICIA Administration Nicotine 1 patch 04/18/25 09:00 04/21/25 08:17 Nicotine 21 Mg/24 Hr Tdsy TD 05/18/25 08:59 Not Given QAM PATRICIA Pramipexole Dihydrochloride 0.125 mg 04/18/25 02:24 04/20/25 20:39 Pramipexole Dihydrochlo 0.25 Mg Tab PO 05/18/25 02:23 0.125 mg HS PATRICIA Administration Propranolol HCl 10 mg 04/18/25 02:24 04/21/25 08:18 Propranolol Hcl 10 Mg Tab PO 05/18/25 02:23 Not Given BID PATRICIA NPO Date Last Intake of Fluids: 04/21/25 Time Last Intake of Fluids: 07:00 Last Intake of Fluids Comment: sip with meds Date Last Intake of Solids: 04/20/25 Time Last Intake of Solids: 18:00 Past Medical History Medical History Endometriosis Graves disease (~2004) Anxiety Migraine Hyperlipemia Acid reflux Hypothyroidism Depression Exercise / Class Metabolic Activity II 4-5 Yardwork/Stairs/Walk up hill Past Family History Family History Mother , Passed age 59 of pneumonia No problems noted. Father No problems noted. Brother No problems noted. Brother No problems noted. Sister , Half - Passed age 41 of MVA No problems noted. Daughter No problems noted. Son No problems noted. 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, stage 1A History of laparoscopy x 6 Past Anesthesia History No Hx of Anesthesia Complications and No Family Hx of Anesthesia Complications History of PONV No Hx of PONV and No Hx of Motion Sickness Social History Smoking Status: Current every day smoker Smoking cigarettes per day: 1 ppd Do You Dip or Chew Tobacco: No Hx Alcohol Use: No Hx Substance Use: No Review of Systems ROS Unobtainable: All systems reviewed & are unremarkable except as noted in HPI & below Physical Exam Vital Signs Last Vital Signs Temp 36.6 C 04/21/25 15:10 Pulse 47 L 04/21/25 15:10 Resp 18 04/21/25 15:10 BP 161/97 H 04/21/25 15:10 Pulse Ox 91 04/21/25 15:10 O2 Del Method Room Air 04/21/25 15:10 O2 Flow Rate 2 04/19/25 16:07 ENMT Mouth: no TMJ abnormality Thyromental Distance: > or= 3.5 Finger Breadths Mallampati Class: II Neck normal visual inspection and trachea midline; neck extension not limited Respiratory normal respiratory effort Auscultation: lungs clear to auscultation bilaterally Cardiovascular Rate/Rhythm: regular rate and regular rhythm Heart Sounds: no murmur Musculoskeletal Spine: normal cervical ROM Extremities: full ROM of extremities Neurologic moves all extremities Psychiatric Orientation: alert and oriented x 3 Testing Laboratory Results 04/18/25 06:28 04/18/25 06:28 Urine Color Yellow 04/17/25 19:57 Urine Appearance Clear (Clear) 04/17/25 19:57 Urine pH 5.5 (4.5-7.5) 04/17/25 19:57 Ur Specific [place] 1.043 (1.000-1.030) H 04/17/25 19:57 Urine Protein Negative (Negative) 04/17/25 19:57 Urine Glucose (UA) Negative (Negative) 04/17/25 19:57 Urine Ketones Negative (Negative) 04/17/25 19:57 Urine Nitrite Negative (Negative) 04/17/25 19:57 Ur Leukocyte Esterase Trace (Negative) H 04/17/25 19:57 Urine WBC (Auto) 0-5 /hpf (0-5) 04/17/25 19:57 Urine RBC (Auto) 3-5 /hpf (0-2) H 04/17/25 19:57 U Hyaline Cast (Auto) 0-2 /lpf (0-2) 04/17/25 19:57 U Epithel Cells (Auto) 0-2 /hpf (0-2) 04/17/25 19:57 Urine Bacteria (Auto) 1+ (None Seen) H 04/17/25 19:57
--- NOTE | 2025-04-21 15:26 | Ultrasound Report ---
ULTRASOUND-GUIDED LEFT SUPRACLAVICULAR LYMPH NODE NEEDLE LOCALIZATION INDICATION: FDG avid left supraclavicular lymph node; metastatic breast carcinoma PROCEDURE: Procedure and risks were complained. Informed consent was obtained. A final timeout was co mpleted. The neck was prepped and draped in sterile fashion. 1% lidocaine was utilized for skin anest hesia. Utilizing ultrasound guidance, a 20-gauge Chambers needle/localization wire was advanced into the left supraclavicular lymph node. Ultrasound images were obtained. The needle was removed and wire secured to the skin with an adhesive dressing. The patient tolerated the procedure well. IMPRESSION: Left supraclavicular lymph node needle localization as detailed above. Performed, dictated, and signed by Rashad Joy PA-C; to be co-signed by Dr. Israel Stern. Electronically signed by: Israel Stern M.D. 04/21/2025 3:53 PM
[2025-04-21] MEDS: LACTATED RINGER'S 1,000 ML IV SCH (15:38)
--- NOTE | 2025-04-21 16:12 | History & Physical Bridge Note ---
Date of Service April 21, 2025 History & Physical Bridge Note I have examined the patient, reviewed the History & Physical and in the interval since the performance of the History & Physical I have noted the following changes of clinical significance: no changes noted. IR feels the second attempt at USG CNB biopsy captured yesterday was also very likely to be non-diagnostic due to the lymph node being very hard and difficult to sample. The patient now presents for needle localized left supraclavicular lymph node excision. I have explained the risks of this procedure to her including major life threatening bleeding leading to immediate as IR has noted this is very close to the major vascular structures in this region, PTX, infection an unsuccessful excision, non diagnostic results and the need for further procedures. She expressed understanding of all of this, accepts the risks and would like to proceed. We also discussed the benefits and alternatives. Consent was obtained.
[2025-04-21] MEDS ORDERED: ceFAZolin 330 MG/ML 1 GM VIAL IV STA (16:15)
[2025-04-21] MEDS ORDERED: GLYCOPYRROLATE 0.2 MG/ML VIAL ONE (16:27)
[2025-04-21] MEDS ORDERED: ALBUTEROL HFA 8 GM INHALER INH ONE (17:12)
[2025-04-21] MEDS: LIDOCAINE 1%/EPINEPHRINE 1:100,000 50 ML VIAL ONE (17:28)
--- NOTE | 2025-04-21 17:51 | Operative Report ---
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 The wire was not in the lymph node. Anesthesia Type General Complications No immediate complications Indications Metastatic breast cancer. Non-diagnostic USG lymph node FNA Description of Procedure The patient was brought back to the operating room and placed on the operating room table in supine position. She was connected to cardiac and oxygen monitoring, supplemental O2 was provided and SCDs were applied to bilateral lower extremities. General anesthesia was administered and a secure airway was established. The left neck and anterior chest were prepped and draped in typical sterile fashion and a timeout was conducted. The guidewire that was placed by radiology was in place. A sterile marking pen was used to sujatha the line for incision at the guidewire insertion site and a transverse incision was made and the skin containing a guidewire. The soft tissues were dissected reached a lymph node at the left supraclavicular region. The guidewire had been dislodged from into its head adjacent to it. The lymph node was dissected free using alternating blunt and gentle cautery dissection and placed in a label container to get sent to pathology for further analysis. The wound was copiously irrigated, additional local anesthetic was used anesthetize the soft tissues at the site. The subcutaneous tissue was approximated using 3-0 Vicryl suture. The skin was sealed with Dermabond. The patient tolerated procedure well. The patient was awakened from anesthesia, the secure airway was removed and she was transferred to recovery in stable condition. I attest to the content of the Intraoperative Record and any orders documented therein. Any exceptions are noted below.
--- NOTE | 2025-04-21 18:21 | Anesthesiology Progress Note ---
Date of Service April 21, 2025 Anesthesia Post Procedure Vital Signs Vital Signs: Temp Pulse Pulse Resp BP Pulse Ox O2 Del Method 04/21/25 18:10 36.6 C 56 L 12 138/66 95 Nasal Cannula 04/21/25 18:00 78 15 127/76 91 Room Air 04/21/25 17:50 81 15 144/81 H 93 Room Air 04/21/25 17:44 36.1 C L 100 H 13 155/84 H 95 Oxymask 04/21/25 15:10 36.6 C 47 L 18 161/97 H 91 Room Air 04/21/25 07:35 Room Air 04/21/25 07:08 36.8 C 55 L 16 136/83 94 Room Air 04/20/25 23:47 57 L 95 Room Air 04/20/25 21:30 36.6 C 50 L 16 143/81 H 92 Room Air 04/20/25 20:37 51 L 143/81 H O2 Flow Rate 04/21/25 18:10 2 04/21/25 18:00 04/21/25 17:50 04/21/25 17:44 4 04/21/25 15:10 04/21/25 07:35 04/21/25 07:08 04/20/25 23:47 04/20/25 21:30 04/20/25 20:37 Pain Intensity Lower Back: Pain Intensity: 7 Transfer of Care Handoff Completed per policy Notes Mental Status: alert / awake / arousable Patient Amnestic to Procedure: Yes Nausea / Vomiting: adequately controlled Pain: adequately controlled Airway Patency, RR, SpO2: stable & adequate BP & HR: stable & adequate Hydration State: stable & adequate Anesthetic Complications: no major complications apparent and Pt Satisfied with anesthetic care
[2025-04-21] MEDS: DOCUSATE SODIUM 100 MG CAP PO PRN (20:46)
[2025-04-22] MEDS ORDERED: LORazepam 0.5 MG TAB PO PRN (09:00)
--- NOTE | 2025-04-22 10:08 | Surgery Progress Note ---
Date of Service April 22, 2025 Assessment & Plan (1) Metastasis: Plan: Pt with metastatic breast cancer POD#1 left supraclavicular lymph node biopsy Incision is c/d/i with dermabond Mild incisional discomfort is tolerable Pathology is pending; if certain diagnosis requires port please let us know We will follow from the periphery, september d/c to home when stable per medicine f/u in 2 weeks for incision check Admission and Anticipated Discharge Date Admission Date: April 17, 2025 Supervising Physician Co-Signing Physician Notes This case was discussed with the surgical PA Subjective Patient a little sore at neck incision, but it is tolerable. Otherwise doing fine without complaints related to her surgery Physical Exam Physical Exam: awake/alert, no distress Skin: left supraclavicular neck incision c/d/i with dermabond, mild discomfort to palpation Results & Data Vital Signs (Past 12 Hours) Vital Signs Temp Pulse Resp BP Pulse Ox O2 Del Method O2 Flow Rate 04/22/25 07:40 97.5 F L 52 L 18 130/74 92 Nasal Cannula 04/22/25 04:10 98.4 F 47 L 16 136/74 95 Room Air 04/22/25 00:11 98.2 F 62 16 119/67 95 Nasal Cannula 2 PG Care Time/CCT Total # of Minutes Spent Total Time Spent with Patient: Total time spent is greater than 50% in coordination of care (as documented) at patient's floor/unit and/or counseling patient: Coding Level of Care Code 78116 Post Operative Follow-Up Diagnoses Metastasis C79.51 Area of secondary neoplastic involvement: bone (1) Metastasis Area of secondary neoplastic involvement: bone Qualified Code(s): C79.51 - Secondary malignant neoplasm of bone
--- NOTE | 2025-04-22 10:25 | Palliative Care Progress Note ---
Date of Service April 22, 2025 Assessment & Plan (1) Cancer related pain: (2) Therapeutic opioid-induced constipation (OIC): (3) Advanced care planning/counseling discussion: (4) Palliative care by specialist: (5) Pain from bone metastases: (6) Breast cancer, stage 4: Admission and Anticipated Discharge Date Admission Date: April 17, [address] bx yesterday tolerated well TDF inc to 25mcg and ativan added for prn bedtime/anxiety mgt Review of Systems Review of Systems: All systems reviewed & are unremarkable except as noted in Subjective Results & Data Vital Signs (Past 12 Hours) Vital Signs Temp Pulse Resp BP Pulse Ox O2 Del Method O2 Flow Rate 04/22/25 07:40 36.4 C L 52 L 18 130/74 92 Nasal Cannula 04/22/25 04:10 36.9 C 47 L 16 136/74 95 Room Air 04/22/25 00:11 36.8 C 62 16 119/67 95 Nasal Cannula 2 PG Care Time/CCT Total # of Minutes Spent Total Time Spent with Patient: Total time spent is greater than 50% in coordination of care (as documented) at patient's floor/unit and/or counseling patient: Coding Diagnoses Cancer related pain G89.3 Therapeutic opioid-induced constipation (OIC) K59.03; T40.2X5A Advanced care planning/counseling discussion Z71.89 Palliative care by specialist Z51.5 Pain from bone metastases G89.3; C79.51 Breast cancer, stage 4 C50.919
--- NOTE | 2025-04-22 10:38 | Hospitalist Progress Note ---
"Date of Service April 22, 2025 Assessment & Plan (1) Intractable back pain: (2) Breast cancer, stage 4: (3) Tobacco use: Plan Patient is a 44-year-old female with a past medical history including Graves' disease, anxiety/depression, HLD, breast cancer. She presented due to 1.5 w eeks of severe progressive low back pain that radiates to her right hip and leg. Patient was found to have new L3 metastasis on PET scan 04/01. Workup in the ED revealed bilateral nonobstructing renal calculi as well as possible L3 tumor extension into the right neural foramen. She is being admitted for intractable pain and further workup regarding metastasis on 04/17/2025. #Stage IV breast cancer w/ mets to lumbar spine | intractable cancer related pain Follows w/ Dr. Ruby outpatient. s/p lumpectomy in 2018 & radiation in 2019. Now on Letrozole which has been continued. Laboratories unremarkable. Brain MRI negative for acute pathology. Lumbar MRI : Bone marrow lesions at T12, L3, L4, S1, S2 concerning for metastatic disease General Surgery consult appreciated IR performed FNA biopsy of the left supraclavicular lymph node on 04/20, however this was again an adequate sample Excisional node biopsy on 04/21; patient tolerated this well Oncology consult appreciated Radiation oncology consult appreciated Continue 6mg IV Dexamethasone daily Initially, pain was not well-controlled with Tylenol, Toradol, and Dilaudid PRN Palliative care consult appreciated for additional pain control measures Planned gradual increase in TDF dosage due to the patient being opioid marbin Uptitrate TDF to 25 mcg on 04/22 Continue IV Dilaudid PRN for breakthrough MiraLAX daily + Senna HS Narcan PRN Continous pulse oximetry Zofran PRN for N/V #Tobacco use disorder 1 pack/day cigarettes Nicotine patch ordered Encourage smoking cessation #Hypothyroidismcontinue levothyroxine #HTNcontinue propranolol #RLScontinue Pramipexole #HLDcontinue statin #Anxiety/depressioncontinue escitalopram #GERDcontinue famotidine Disposition: Continued stay on MedSurg; hopeful discharge home tomorrow on 04/23 if pain controlled with adjustments to fentanyl patch VTE ppx: Restart Lovenox on 04/22 Admission and Anticipated Discharge Date Admission Date: April 17, 2025 Subjective Mrs. Araiza is doing well this morning. She still having an aching pain in her left anterior neck following the excision yesterday. She rates the pain 5 out of 10. However, her back is feeling much better and reports it is 5 out of 10 at present. No BMs yet today. ROS: Patient endorses pain at the incision site of her neck, constipation, and lower back pain. Patient denies fevers overnight, chest pain, SOB, cough, abdominal pain, N/V, or change in urinary/bowel habits. Review of Systems Review of Systems: See HPI above Physical Exam Physical Exam: General: no acute distress; sitting upright on the side of her bed; non-toxic appearing; cooperative; SpO2 92% on RA HEENT: normocephalic, atraumatic; PERRLA; vision and hearing intact Neck: supple; trachea midline; surgical incision site is mildly erythematous, TTP; no purulent drainage appreciated Skin: warm, dry without signs of tenting; no cyanosis; no rashes, bruising, lesions, or erythema noted CV: chest wall NTP; RRR; S1/S2 normal; no murmurs/rubs/gallops; pulses intact and symmetric at radial, DP, and PT Lungs: no acute respiratory distress; symmetrical chest wall expansion; clear breath sounds across all lung [place] w/o adventitious sounds; no wheezing ABD: Soft, NTP; BS present; no rebound/guarding; no distention Back: Lower right back is mildly TTP (lidocaine patch in place) MSK: no tics or fasciculations; no edema noted in the LEs b/l, nonerythematous; 5/5 log hooker strength bilaterally; patient demonstrates ability to wiggle toes bilaterally; 4/5 strength with plantar/dorsiflexion bilaterally Neuro: A&Ox3; normal mood and affect; fluent speech; patient reports sensation is intact and symmetric in lower extremities bilaterally assessed via light touch Results & Data Results & Data Vital Signs (Past 12 Hours) Vital Signs Temp Pulse Resp BP Pulse Ox O2 Del Method O2 Flow Rate 04/22/25 07:40 36.4 C L 52 L 18 130/74 92 Nasal Cannula 04/22/25 04:10 36.9 C 47 L 16 136/74 95 Room Air 04/22/25 00:11 36.8 C 62 16 119/67 95 Nasal Cannula 2 PG Care Time/CCT Total # of Minutes Spent Total Time Spent with Patient: Total time spent is greater than 50% in coordination of care (as documented) at patient's floor/unit and/or counseling patient: Coding [place] [address] SUB INP/OBS CARE 3/50MIN Patient Type Established History Comprehensive Exam Comprehensive Medical Decision Making High Complexity Diagnoses Intractable back pain M54.9 Breast cancer, stage 4 C50.919 Tobacco use Z72.0"
[2025-04-22] MEDS: POLYETHYLENE (MIRALAX) 17 GM PACK PO STA (10:57)
[2025-04-22 11:23] LABS: Hematocrit (blood only) 41.8 % (37.0-47.0); Hemoglobin 14.7 g/dL (12.0-16.0); Immature Granulocytes # (auto) 0.09 K/uL (0.01-0.20); Immature Granulocytes % (auto) 0.6 %; Mean Corpuscular Hemoglobin 33.0 pg (25.0-34.0); Mean Corpuscular Volume 93.7 fL (80.0-100.0); Platelet Count 265 K/uL (130-400); RDW Standard Deviation 43.2 fL (36.4-46.3); Red Blood Count 4.46 M/uL (4.20-5.40); White Blood Count 13.93 K/ul (4.8-10.8)
[2025-04-22 11:36] LABS: Anion Gap 8.0 (3-11); Blood Urea Nitrogen 22.0 mg/dl (6-23); Calcium 9.4 mg/dl (8.6-10.3); Carbon Dioxide 25.0 mmol/L (21-32); Chloride 102.0 mmol/L (98-107); Creatinine Clr Calc Pharmacy 157.9 ml/min; Glucose 114.0 mg/dl (70-99(Fasting)); Potassium 4.0 mmol/L (3.5-5.1); Sodium 135.0 mmol/L (136-145)
[2025-04-22] MEDS: SENNA 8.6 MG TAB PO SCH (21:51)
[2025-04-23 06:58] VITALS: BP 106/68; PULSE 54; RESP 17; TEMP 97.9; O2SAT 97
[2025-04-23] MEDS: POLYETHYLENE (MIRALAX) 17 GM PACK PO SCH (08:35)
--- NOTE | 2025-04-23 10:15 | Surgery Progress Note ---
Date of Service April 23, 2025 Assessment & Plan (1) Breast cancer, stage 4: (2) Lymphadenopathy of head and neck region: Plan 2 failed attempts at ultrasound-guided FNA with radiology. She is now POD 2 S/P left supraclavicular lymph node excision The area is intact and appears to be healing without complication Pathology results pending Admission and Anticipated Discharge Date Admission Date: April 17, 2025 Subjective I have seen and examined this patient. She has no complaints at the left neck surgical site. Still complains of pain at her lower right back which she says is pretty aggravated when she mobilizes. Physical Exam Constitutional: average body habitus; not ill appearing, not diaphoretic and not malnourished Neck: Lower left neck and incision intact, contains Dermabond No evidence for infection no swelling Respiratory: normal respiratory effort; no respiratory distress, no labored breathing and does not use accessory muscles Results & Data Vital Signs (Past 12 Hours) Vital Signs Temp Pulse Resp BP Pulse Ox O2 Del Method 04/23/25 06:57 36.6 C 54 L 17 106/68 97 Room Air 04/22/25 22:41 36.6 C 49 L 16 139/76 95 Room Air PG Care Time/CCT Total # of Minutes Spent Total Time Spent with Patient: Total time spent is greater than 50% in coordination of care (as documented) at patient's floor/unit and/or counseling patient: Coding Level of Care Code 52996 Post Operative Follow-Up Diagnoses Breast cancer, stage 4 C50.919 Lymphadenopathy of head and neck region R59.0
--- NOTE | 2025-04-23 10:16 | Discharge Summary ---
Discharge Summary Date of Service April 23, 2025 Principal Dx & Hospital Course #1 = Principal Diagnosis (1) Intractable back pain: (2) Breast cancer, stage 4: (3) Tobacco use: Plan Patient is a 44-year-old female with a past medical history including Graves' disease, anxiety/depression, HLD, breast cancer. She presented due to 1.5 weeks of severe progressive low back pain that radiates to her right hip and leg. Patient was found to have new L3 metastasis on PET scan 04/01. Workup in the ED revealed bilateral nonobstructing renal calculi as well as possible L3 tumor extension into the right neural foramen. She is being admitted for intractable pain and further workup regarding metastasis on 04/17/2025. #Stage IV breast cancer w/ mets to lumbar spine | intractable cancer related pain Follows w/ Dr. Ruby outpatient. s/p lumpectomy in 2019 & radiation in 2019. Now on Letrozole which has been continued. Laboratories unremarkable. Brain MRI negative for acute pathology. Lumbar MRI : Bone marrow lesions at T12, L3, L4, S1, S2 concerning for metastatic disease General Surgery consult appreciated IR performed FNA biopsy of the left supraclavicular lymph node on 04/20, however this was again an adequate sample Excisional node biopsy on 04/21; patient tolerated this procedure well LN biopsy still pending at time of discharge on 04/23 Oncology consult appreciated Radiation oncology consult appreciated Continue 6mg IV Dexamethasone daily x 6 days and patient Will plan to discharge on Medrol Dosepak Initially, pain was not well-controlled with Tylenol, Toradol, and Dilaudid PRN Palliative care consult appreciated for additional pain control measures Planned gradual increase in TDF dosage due to the patient being opioid marbin Uptitrate TDF to 25 mcg patient reported significant pain relief Will plan to discharge patient on the following medications: Fentanyl patch, oxycodone for breakthrough pain, MiraLAX, senna, Narcan, Medrol Dosepak, Zofran, and Ativan #Tobacco use disorder 1 pack/day cigarettes Continue to encourage smoking cessation #Hypothyroidismcontinue levothyroxine #HTNcontinue propranolol #RLScontinue Pramipexole #HLDcontinue statin #Anxiety/depressioncontinue escitalopram #GERDcontinue famotidine Day of discharge 04/23: VSS Mrs. Araiza is doing well this morning. She reports her pain is much better than when she originally came into the hospital. She was still having 8 out of 10 lower back pain up until a day ago, but reports her current pain at rest is 3 out of 10. While she still has exacerbations of pain with movements and sitting up in bed, she feels that the fentanyl patch has significantly helped to reduce her pain. She is hoping to return home today if possible. ROS: Patient endorses lower back pain worse with movements (and occasional radiation down the right thigh), and constipation. Patient denies fevers overnight, chest pain, shortness of breath, cough, abdominal pain, N/V/D, blood in the urine/stool, or numbness or tingling going down the legs. Disposition: Discharge home Notes For Next Care Provider Patient hospitalized for severe progression of LBP. Lumbar spine MRI revealed bone marrow lesions in 5 vertebral bodies. Given patient's history of breast cancer, suspected to be metastasis. She underwent FNA of her left supraclavicular lymph node, but a large enough sample was not obtained. Therefore, she underwent an excisional LN biopsy with her surgical team on 04/21. She tolerated this procedure well. Biopsy still pending at time of discharge; please be on the look out for results. New prescriptions: Fentanyl 25 mcg/hr patches Oxycodone 5 mg tablets to be taken every 8 hours as needed for severe breakthrough pain (scale 7-10) Lorazepam ("Ativan") 0.5 mg tablets to be taken twice daily as needed for anxiety Naloxone ("Narcan") and intranasal spray to be used as needed in the event of opioid induced sedation/respiratory depression Ondansetron ("Zofran") 4 mg oral dissolvable tablet as needed for nausea/vomiting Medrol Dosepak MiraLAX 17 g packet daily as needed for constipation Senna 8.6 mg tablets nightly as needed for constipation Patient will plan to follow-up with oncology and palliative care as an outpatient. Please reach out with any questions or concerns. Admission HPI Per Admitting Provider Patient is a 44-year-old female with a past medical history including Graves' d isease, anxiety/depression, HLD, breast cancer. She presented due to 1.5 weeks of severe progressive low back pain that radiates to her right hip and leg. Patient was found to have new L3 metastasis on PET scan 04/01. Workup in the ED revealed bilateral nonobstructing renal calculi as well as possible L3 tumor extension into the right neural foramen. She is being admitted for intractable pain and further workup regarding metastasis. Patient seen at bedside with her family present. She stated she had radiation, lumpectomy, and lymph node biopsy in 2019 and her cancer has been stable since. She underwent CT imaging 03/26 which showed possible metastasis and she had a PET scan 04/01 which showed metastasis to the L3 region. Patient then had a lymph node biopsy 04/08 which she reports did not have a enough specimen to determine the hormonal make up of the cancer. She is to have a brain MRI Sunday and call lymph node biopsy with Dr. Sanford on Sunday. Since then she has developed progressive low back pain on the right side which radiates down her right hip and leg. This has been occurring for approximately 1.5 weeks and it has been unrelieved with Tylenol and ibuprofen at home. She does endorse some pain with urination/difficulty starting a stream however denies any urinary or bowel incontinence. She denies any trauma to the area. She does endorse some intermittent chest pain however baseline for her given her mass reportedly presses on her chest. She denies any shortness of breath, nausea, vomiting. She does smoke 1 pack per send day of cigarettes, would like nicotine patch, ordered. Denies daily alcohol use. She is due for her evening medications, ordered. Does not use any oxygen at baseline. Wishes to be DNR/DNI. Discussion with ER provider who spoke with on-call oncologist, Dr. Corona who recommended admission to the hospital for pain management, lumbar spine MRI, and will consider radiation based off MRI results. Admission Exam Per Admitting Provider Physical Exam: The patient is awake, alert and oriented 3, well developed and well nourished, normocephalic and atraumatic, in no acute distress. Non-toxic appearing. HEENT- EOMI, mucous membranes moist. Hearing grossly intact. Heart-normal S1 and S2. No murmurs, rubs or gallops. Lungs-clear bilaterally, no respiratory distress, no accessory muscle use. Abdomen-normal bowel sounds and soft. No ascites noted. Non-tender. Extremities- no clubbing, cyanosis, or edema. Rheumatologic-normal range of motion. Psychiatric-normal affect. Musculoskeletal: no cyanosis or clubbing, extremities motor strength 5/5 Neurologic: Motor/Sensory: no sensory deficit Discharge Exam General: no acute distress; sitting upright on the side of her bed; non-toxic appearing; cooperative; SpO2 97% on RA HEENT: normocephalic, atraumatic; PERRLA; vision and hearing intact Neck: supple; trachea midline; surgical incision site is mildly erythematous, TTP; no purulent drainage appreciated Skin: warm, dry without signs of tenting; no cyanosis; no rashes, bruising, lesions, or erythema noted CV: chest wall NTP; RRR; S1/S2 normal; no murmurs/rubs/gallops; pulses intact and symmetric at radial, DP, and PT Lungs: no acute respiratory distress; symmetrical chest wall expansion; clear breath sounds across all lung shelton w/o adventitious sounds; no wheezing ABD: Soft, NTP; BS present; no rebound/guarding; no distention Back: Lower right back is mildly TTP (lidocaine patch in place) MSK: no tics or fasciculations; no edema noted in the LEs b/l, nonerythematous; 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; patient demonstrates ability to wiggle toes bilaterally; 4/5 strength with plantar/dorsiflexion bilaterally Neuro: A&Ox3; normal mood and affect; fluent speech; patient reports sensation i s intact and symmetric in lower extremities bilaterally assessed via light touch Discharge Plan Discharge Items Patient Disposition: Home - Self-Care Reason For Visit: INTRACTABLE PAIN, CANCER RELATED Discharge Diagnosis: Vertebral body bone marrow lesions, intractable back pain, cancer related pain Condition on Discharge: Fair Activity: Resume your previous activity Bathing Comment: may shower; no tubs/pools x 2 weeks Driving/Machine Use: Resume 1 day after discharge Non-emergency contact: Primary Care Provider, Surgeon and Oncologist Call non-emergency contact if: you have any medication questions, your symptoms worsen, your pain is not controlled, your pain is worsening, your pain is concerning for you, you have a fever, your wound has increased redness and your wound has increased drainage Follow-up/Referrals: Nelly Turner DO [Physician] - (please call to schedule follow up in the office in 2 weeks) Jeremiah Day MD [Primary Care Provider] - Diet: Regular Addtl Attending Provider Instructions: You were hospitalized at [facility] from 04/17 to 04/23 for severe progression of lower back pain with radiation down the right hip/leg. MRI imaging of your lumbar spine on arrival revealed that you had bone marrow lesions in 5 of your vertebral bodies (T12, L3, L4, S1, and S2). Given your history of ER/TN positive breast cancer, it is suspected that these bone marrow lesions in your lower spine could be evidence of metastatic disease. You underwent an excisional lymph node biopsy with our surgical team on 04/21 to assess your left supraclavicular lymph node for cancer. The results of this biopsy are still pending at time of discharge (please be on the look out for correspondence regarding these results). Additionally, a brain MRI was also performed during your hospital stay, which did not reveal any acute findings. Following your biopsy, you met with our palliative care team to have your pain medications adjusted. You were started on a fentanyl patch, and the dose was gradually increased to a point where you felt your pain was controlled. Given your vitals have remained stable while in the hospital, and you feel that your pain is well-controlled, we feel that you are safe to return home at this time with the following new prescriptions New prescriptions sent to your pharmacy on discharge: Fentanyl 25 mcg/hr patches Oxycodone 5 mg tablets to be taken every 8 hours as needed for severe breakthrough pain (scale 7-10) Lorazepam ("Ativan") 0.5 mg tablets to be taken twice daily as needed for anxiety Naloxone ("Narcan") and intranasal spray to be used as needed in the event of opioid induced sedation/respiratory depression Ondansetron ("Zofran") 4 mg oral dissolvable tablet as needed for nausea/vomiting Methylprednisolone 4 mg tablets (Medrol Dosepak steroid taper) x 21 tablets Please take 6 tablets on day 1, 5 tablets on day 2, 4 tablets on day 3, etc. until completion of the course MiraLAX 17 g packet daily as needed for constipation Senna 8.6 mg tablets nightly as needed for constipation Please note that fentanyl and oxycodone are opioid analgesics and have addictive properties. Please do not operate heavy machinery or drive a vehicle while taking these medications. Please plan to follow-up with your PCP in the next 7 to 10 days for a transitional care appointment. We will also plan to schedule a follow-up appoint with oncology/palliative care on an outpatient basis. If you develop any new or worsening symptoms, such as fever, chills, lightheadedness, fainting episodes, chest pain, difficulty breathing, difficulty walking, or intractable lower back pain, please return to the emergency department immediately. It was a pleasure taking care of you. Please reach out with any questions or concerns. Sincerely, The Hospital medicine team at [facility] Addtl Master Of Ceremonies Provider Instructions: You have skin glue over your incisions called dermabond. you may shower with this on. It will tend to dissolve and fall off within a couple weeks. Do not pick at the skin glue. Pending Studies at Discharge: Yes (surgical pathology) Studies:: Excisional lymph node biopsy Stand-Alone Forms: My [facility], Smoking Cessation Medications and DC Order Prescriptions: New sennosides [Senna Lax] 8.6 mg Tablet 8.6 mg PO HS PRN (Reason: Constipation) Qty: 30 0RF Rx Instructions: Take 1 tablet at night as needed for constipation polyethylene glycol 3350 [Miralax] 17 gram Powder In Packet 17 g PO DAILY PRN (Reason: constipation) Qty: 30 0RF Rx Instructions: Dissolve 1 packet in water in the morning as needed for constipation fentanyl 25 mcg/hr Patch 72 Hour 1 patch transdermal Q3D Qty: 5 0RF Rx Instructions: Apply to skin and leave in place x 3 days (72 hours) for cancer related pain lorazepam 0.5 mg Tablet 0.5 mg PO BID PRN (Reason: anxiety) Qty: 14 0RF Rx Instructions: Take 1 tablet by mouth up to 2 times daily as needed for anxiety oxycodone 5 mg Tablet 5 mg PO Q8H PRN (Reason: severe pain (scale score 7-10)) Qty: 14 0RF Rx Instructions: Take 1 tablet by mouth every 8 hours as needed for cancer related pain Do not drive or operate heavy machinery while taking this medication ondansetron 4 mg tablet,disintegrating 4 mg PO Q8H PRN (Reason: nausea and vomiting) Qty: 14 0RF Rx Instructions: Dissolve 1 tablet under your tongue every 8 hours as needed for nausea/vomiting naloxone [Narcan] 4 mg/actuation spray,non-aerosol 1 spray intranasal ONCE PRN (Reason: opioid overdose) Qty: 2 0RF Rx Instructions: Intranasal spray to be used in the event of respiratory depression/opioid overdose Administer as a single dose in 1 nostril Repeat new nasal spray every 2 to 3 minutes in alternating nostril if patient does not respond Seek immediate medical assistance after administration of first dose methylprednisolone 4 mg tablets,dose pack See Rx Instructions .ROUTE .COMPLEX 6 Days Qty: 21 0RF Rx Instructions: 6-day tapering course (please follow instructions on label) Continued famotidine 20 mg tablet 20 mg PO BID propranolol 10 mg tablet 10 mg PO BID pramipexole 0.125 mg tablet 0.125 mg PO DAILY letrozole 2.5 mg tablet 2.5 mg PO DAILY Rx Instructions: begin between days 2 and 5 of mentrual cycle atorvastatin 20 mg tablet 20 mg PO DAILY levothyroxine 125 mcg tablet 125 mcg PO DAILY escitalopram oxalate 20 mg tablet 20 mg PO DAILY Discharge Orders: Discharge Order (Routine); Ordered 04/23/25 Ordered By: Talha Redmond/Other Patient Handouts: Fentanyl Transdermal System, Oxycodone Oral Tablet 5 mg Admission Data Admit Date/Time: 04/17/25 20:55 Attending Provider: Miguel Ángel Mancera Admit Provider: Nikolas Alfaro Primary Care Provider: Jeremiah Day Other Providers: Nikolas Alfaro; Brandon Corona; Nelly Turner; Bo Sapp; Bhavya Gomez; Lucy Gallagher Hospital Stay Data Consultations 04/17/25 20:25 ED Decision to Admit Stat 04/18/25 02:24 Consult Oncology Routine 04/20/25 08:47 Consult General Surgery Routine 04/20/25 09:10 Consult Radiation Oncology Routine 04/20/25 17:49 Consult Palliative Care Routine Procedures Performed Operation Date: 04/21/25 08:40 Actual Procedures p Left Supraclavicular Excisional Node Biopsy (Needle Localization)(Left) - Nelly Turner DO Diagnostic Imagining Performed 04/17/25 17:58 CT abd pelvis IV con only Stat CT lumbar spine w con Stat 04/17/25 20:31 MRI Lumbar Spine [MR lumbar spine wo con] Routine 04/18/25 08:07 MRI Brain [MR brain wo/w con] Routine 04/20/25 10:14 IR FNA lymph node US Urgent 04/21/25 IR softtissue loc w/img US Routine Pending Results Patient Have Any Pending Studies at Discharge: Yes (surgical pathology) Discharge Instructions Given to Patient (Per Discharging Provider) You were hospitalized at [facility] from 04/17 to 04/23 for severe progression of lower back pain with radiation down the right hip/leg. MRI imaging of your lumbar spine on arrival revealed that you had bone marrow lesions in 5 of your vertebral bodies (T12, L3, L4, S1, and S2). Given your history of ER/TN positive breast cancer, it is suspected that these bone marrow lesions in your lower spine could be evidence of metastatic disease. You underwent an excisional lymph node biopsy with our surgical team on 04/21 to assess your left supraclavicular lymph node for cancer. The results of this biopsy are still pending at time of discharge (please be on the look out for correspondence regarding these results). Additionally, a brain MRI was also performed during your hospital stay, which did not reveal any acute findings. Following your biopsy, you met with our palliative care team to have your pain medications adjusted. You were started on a fentanyl patch, and the dose was gradually increased to a point where you felt your pain was controlled. Given your vitals have remained stable while in the hospital, and you feel that your pain is well-controlled, we feel that you are safe to return home at this time with the following new prescriptions New prescriptions sent to your pharmacy on discharge: Fentanyl 25 mcg/hr patches Oxycodone 5 mg tablets to be taken every 8 hours as needed for severe breakthrough pain (scale 7-10) Lorazepam ("Ativan") 0.5 mg tablets to be taken twice daily as needed for anxiety Naloxone ("Narcan") and intranasal spray to be used as needed in the event of opioid induced sedation/respiratory depression Ondansetron ("Zofran") 4 mg oral dissolvable tablet as needed for nausea/vomiting Methylprednisolone 4 mg tablets (Medrol Dosepak steroid taper) x 21 tablets Please take 6 tablets on day 1, 5 tablets on day 2, 4 tablets on day 3, etc. until completion of the course MiraLAX 17 g packet daily as needed for constipation Senna 8.6 mg tablets nightly as needed for constipation Please note that fentanyl and oxycodone are opioid analgesics and have addictive properties. Please do not operate heavy machinery or drive a vehicle while taking these medications. Please plan to follow-up with your PCP in the next 7 to 10 days for a transitional care appointment. We will also plan to schedule a follow-up appoint with oncology/palliative care on an outpatient basis. If you develop any new or worsening symptoms, such as fever, chills, lightheadedness, fainting episodes, chest pain, difficulty breathing, difficulty walking, or intractable lower back pain, please return to the emergency department immediately. It was a pleasure taking care of you. Please reach out with any questions or concerns. Sincerely, The Hospital medicine team at [facility] Total Time Total Time Spent Total Time Spent (In Minutes): 40 Coding Level of Care Code 02538 INP/OBS DISCH >30 MIN Diagnoses Intractable back pain M54.9 Breast cancer, stage 4 C50.919 Tobacco use Z72.0
== END 2025-04-23 14:08 | disposition home or self-care (01) | DRG 580 ==
LOC: ED 17:40 → 3W 20:55 → SUATTDRO 20:55 → 3W 04-18 03:56
DX: Z88.8 Allergy status to other drugs, medicaments and biological substances; K59.03 Drug induced constipation; E78.5 Hyperlipidemia, unspecified; E05.00 Thyrotoxicosis with diffuse goiter without thyrotoxic crisis or storm; M25.551 Pain in right hip; C77.3 Secondary and unspecified malignant neoplasm of axilla and upper limb lymph nodes; M54.50 Low back pain, unspecified; E03.9 Hypothyroidism, unspecified; Z66 Do not resuscitate; F17.210 Nicotine dependence, cigarettes, uncomplicated; K21.9 Gastro-esophageal reflux disease without esophagitis; Z79.899 Other long term (current) drug therapy; F41.9 Anxiety disorder, unspecified; R59.0 Localized enlarged lymph nodes; Z79.890 Hormone replacement therapy; Z92.3 Personal history of irradiation; G43.909 Migraine, unspecified, not intractable, without status migrainosus; Z90.710 Acquired absence of both cervix and uterus; C79.51 Secondary malignant neoplasm of bone; G89.3 Neoplasm related pain (acute) (chronic); N20.0 Calculus of kidney; Z71.89 Other specified counseling; C50.919 Malignant neoplasm of unspecified site of unspecified female breast; F32.A Depression, unspecified